=== PATIENT | female | born 1935 | race Caucasian/White ===

== ENCOUNTER → 2016-10-25 | Outpatient (CLI) | payer OTHER, MEDICARE ==
[~2016-10-25] MED LIST: ACET-1256 PO; ALEN70TA4 PO; ASPI-428 PO; CALC-437 PO; EFFSR150 PO; ERGO50002 PO; GABA-113 PO; LORA-741 PO; LPR25 PO; LSN40 PO; MAGN400T5 PO; MECL1TAB42 PO; MIRT30TA3 PO; MULT-1102 PO; MULTTAB61 PO; NRV5 PO; PANT1TAB48 PO; PRAV20TA PO; [UNRECOGNIZED DRUG - CODE] PO
[2016-10-25 08:37] LABS: MEAN CELL VOLUME 89.4 fL (80-100); MEAN CORPUSCULAR HEMOGLOBIN 28.7 pg (25-34); MEAN CORPUSCULAR HGB CONC 32.1 g/dl (32-36); MEAN PLATELET VOLUME 11.5 fL (7.4-10.4); PLATELET COUNT 306 K/uL (130-400); RED BLOOD COUNT 4.25 M/uL (4.2-5.4); WHITE BLOOD COUNT 5.38 K/uL (4.8-10.8)
[2016-10-25 08:46] LABS: ALT/SGPT 11 U/L (12-78); BLOOD UREA NITROGEN 13 mg/dl (7-18); BUN/CREATININE RATIO 12.9 (10-20); CALCIUM 9.2 mg/dl (8.5-10.1); CARBON DIOXIDE 26 mmol/L (21-32); CHLORIDE 98 mmol/L (98-107); GLUCOSE 101 mg/dl (70-99); SODIUM 137 mmol/L (136-145)
[2016-10-25 08:49] LABS: ALB/GLOB RATIO 0.8 (0.9-2); ALKALINE PHOSPHATASE 72 U/L (45-117); AST/SGOT 22 U/L (15-37); PHOSPHORUS 3.6 mg/dl (2.5-4.9)
== END | disposition home or self-care (01) ==
LOC: C.LABOUTLO 08:15
PROVIDERS: ATTEND Family Medicine
DX: I73.9 Peripheral vascular disease, unspecified (principal); I67.2 Cerebral atherosclerosis; N18.3 Chronic kidney disease, stage 3 (moderate)

== ENCOUNTER → 2016-12-16 | Outpatient (CLI) | payer OTHER, MEDICARE ==
[2016-12-16 12:07] LABS: HEMATOCRIT 36.8 % (37-47); MEAN CELL VOLUME 91.1 fL (80-100); MEAN CORPUSCULAR HGB CONC 31.8 g/dl (32-36); MEAN PLATELET VOLUME 11.4 fL (7.4-10.4); PLATELET COUNT 328 K/uL (130-400); RED BLOOD COUNT 4.04 M/uL (4.2-5.4); WHITE BLOOD COUNT 8.15 K/uL (4.8-10.8)
[2016-12-16 12:20] LABS: ALT/SGPT 9 U/L (12-78); BLOOD UREA NITROGEN 13 mg/dl (7-18); BUN/CREATININE RATIO 18.3 (10-20); CALCIUM 8.8 mg/dl (8.5-10.1); CARBON DIOXIDE 28 mmol/L (21-32); CHLORIDE 108 mmol/L (98-107); GLUCOSE 82 mg/dl (70-99); POTASSIUM 4.5 mmol/L (3.5-5.1); SODIUM 143 mmol/L (136-145)
[2016-12-16 12:23] LABS: ALB/GLOB RATIO 0.8 (0.9-2); ALKALINE PHOSPHATASE 76 U/L (45-117); AST/SGOT 21 U/L (15-37); PHOSPHORUS 3.5 mg/dl (2.5-4.9)
== END | disposition home or self-care (01) ==
LOC: C.LABWYN 12:24
PROVIDERS: ATTEND Family Medicine
DX: N18.3 Chronic kidney disease, stage 3 (moderate) (principal)

== ENCOUNTER → 2017-06-16 | Outpatient (CLI) | payer OTHER, MEDICARE ==
[2017-06-16 13:02] LABS: BLOOD UREA NITROGEN 15 mg/dl (7-18); BUN/CREATININE RATIO 17.5 (10-20); CALCIUM 8.8 mg/dl (8.5-10.1); CARBON DIOXIDE 32 mmol/L (21-32); CHLORIDE 106 mmol/L (98-107); CREATININE 0.83 mg/dl (0.60-1.20); GLUCOSE 84 mg/dl (70-99); POTASSIUM 4.3 mmol/L (3.5-5.1); SODIUM 142 mmol/L (136-145)
[2017-06-16 13:04] LABS: PHOSPHORUS 3.9 mg/dl (2.5-4.9)
== END | disposition home or self-care (01) ==
LOC: C.LABWYN 13:16
PROVIDERS: ATTEND Family Medicine
DX: Z23 Encounter for immunization (principal); I67.2 Cerebral atherosclerosis; Z86.73 Personal history of transient ischemic attack (TIA), and cerebral infarction without residual deficits; I73.9 Peripheral vascular disease, unspecified; N18.3 Chronic kidney disease, stage 3 (moderate)

== ENCOUNTER → 2017-10-24 | Outpatient (CLI) | payer OTHER, MEDICARE ==
[~2017-10-24] MED LIST changes: +PANT1TAB3 PO; -PANT1TAB48 PO
== END | disposition home or self-care (01) ==
LOC: C.PATHSPEC 17:07
PROVIDERS: ATTEND Surgery
DX: D48.5 Neoplasm of uncertain behavior of skin (principal)

== ENCOUNTER → 2017-12-22 | Outpatient (CLI) | payer OTHER, MEDICARE ==
[2017-12-22 13:11] LABS: HEMATOCRIT 37.2 % (37-47); HEMOGLOBIN 11.9 g/dL (12.0-16.0); MEAN CELL VOLUME 93.7 fL (80-100); PLATELET COUNT 282 K/uL (130-400); RED CELL DISTRIBUTION WIDTH CV 14.2 % (11.5-14.5); RED CELL DISTRIBUTION WIDTH SD 48.8 fL (36.4-46.3)
[2017-12-22 14:09] LABS: BLOOD UREA NITROGEN 15 mg/dl (7-18); CALCIUM 8.8 mg/dl (8.5-10.1); CARBON DIOXIDE 29 mmol/L (21-32); CREATININE 0.85 mg/dl (0.60-1.20); GLUCOSE 79 mg/dl (70-99); POTASSIUM 4.1 mmol/L (3.5-5.1); SODIUM 139 mmol/L (136-145)
== END | disposition home or self-care (01) ==
LOC: C.LABWYN 11:45
PROVIDERS: ATTEND Family Medicine
DX: N18.3 Chronic kidney disease, stage 3 (moderate) (principal)

== ENCOUNTER → 2018-01-03 | Outpatient (CLI) | payer OTHER, MEDICARE | END | disposition home or self-care (01) | LOC: C.LABWYN 18:02 | PROVIDERS: ATTEND Family Medicine | DX: N18.3 Chronic kidney disease, stage 3 (moderate) (principal) ==

== ENCOUNTER 2018-05-01 09:30 | Inpatient (IN) | payer OTHER, MEDICARE ==
[~2018-05-01] VITALS: Ht 162.6 cm; Wt 62.8 kg
[~2018-05-01 09:30] MED LIST changes: -ERGO50002 PO; +LISI40TA3 PO; -LSN40 PO; +[UNRECOGNIZED DRUG - CODE] PO
[2018-05-01] MEDS ORDERED: IMD/2 PO (09:52)
[2018-05-01] MEDS ORDERED: PROC1SUP PR (09:52)
[2018-05-01] MEDS ORDERED: VENL150C56 PO (09:52)
[2018-05-01] MEDS ORDERED: ROSU20TA PO (09:52)
[2018-05-01] MEDS ORDERED: ACET-1693 PO (09:52)
[2018-05-01] MEDS ORDERED: CALC500C2 PO (09:52)
[2018-05-01] MEDS ORDERED: ONDA4TAB46 PO (09:52)
[2018-05-01] MEDS ORDERED: LORA-741 PO (09:52)
[2018-05-01] MEDS ORDERED: TRN400 PO (09:52)
[2018-05-01] MEDS ORDERED: PANT40TA PO (09:52)
[2018-05-01] MEDS ORDERED: CARB1SOL8 OT (09:52)
[2018-05-01] MEDS ORDERED: ERGO500037 PO (09:52)
[2018-05-01] MEDS ORDERED: PRAV80TA2 PO (09:52)
[2018-05-01] MEDS ORDERED: GABA-113 PO (09:52)
[2018-05-01] MEDS ORDERED: ASPI81TA28 PO (09:52)
[2018-05-01] MEDS ORDERED: METO25TA56 PO (09:52)
[2018-05-01] MEDS ORDERED: CALC-437 PO (09:52)
[2018-05-01] MEDS ORDERED: AMLO5TAB3 PO (09:52)
[2018-05-01] MEDS ORDERED: MULTTAB63 PO (09:52)
[2018-05-01] MEDS ORDERED: LISI40TA PO (09:52)
[2018-05-01 10:01] LABS: HEMATOCRIT 35.8 % (37-47); HEMOGLOBIN 11.7 g/dL (12.0-16.0); MEAN CELL VOLUME 89.7 fL (80-100); MEAN CORPUSCULAR HEMOGLOBIN 29.3 pg (25-34); MEAN CORPUSCULAR HGB CONC 32.7 g/dl (32-36); MEAN PLATELET VOLUME 10.9 fL (7.4-10.4); PLATELET COUNT 280 K/uL (130-400); RED CELL DISTRIBUTION WIDTH CV 14.2 % (11.5-14.5); RED CELL DISTRIBUTION WIDTH SD 46.7 fL (36.4-46.3); WHITE BLOOD COUNT 16.06 K/uL (4.8-10.8)
[2018-05-01 10:19] LABS: BASO % 0.1 %; BASO ABS # 0.02 K/uL (0-0.2); EOS % 0.1 %; EOS ABS # 0.01 K/uL (0-0.5); LYMPH % 17.7 %; LYMPH ABS # 2.85 K/uL (1.2-3.4); MONO % 13.2 %; MONO ABS # 2.12 K/uL (0.11-0.59); NEUT % 68.3 %; NEUT ABS # 10.96 K/uL (1.4-6.5)
[2018-05-01 10:25] LABS: ALBUMIN 2.8 gm/dl (3.4-5.0); CALCIUM 7.8 mg/dl (8.5-10.1); CREATININE 2.46 mg/dl (0.60-1.20); POTASSIUM 3.1 mmol/L (3.5-5.1); TOTAL PROTEIN 6.7 gm/dl (6.4-8.2)
[2018-05-01] MEDS ORDERED: SODIUM CHLORIDE 0.9% 1000ML 1,000 ML IV STA ×2 (10:29→10:44)
--- NOTE | 2018-05-01 10:38 | DIAGNOSTIC IMAGING REPORT ---
SINGLE VIEW CHEST CLINICAL HISTORY: Fever. Lethargy. FINDINGS: An AP, portable, upright chest radiograph is compared to study dated 03/18/2015 and correlated with chest CT dated 11/26/2013. The examination is degraded by portable technique and patient rotation. The heart is mildly enlarged and there is atherosclerotic calcification of the thoracic aorta. The pulmonary vasculature is noncongested. Emphysema and chronic interstitial thickening are similar to previous. There is no airspace consolidation or pleural effusion. Scarring is noted at the right lung base. No pneumothorax is seen. The skeletal structures are osteopenic. There are numerous healed right-sided rib fractures. Degenerative change is noted in the thoracic spine. IMPRESSION: Cardiomegaly, mild emphysema, and chronic parenchymal changes as above. No acute cardiopulmonary abnormality is seen. Electronically signed by: Natan Meredith M.D. 05/01/2018 10:37 AM Dictated Date/Time: 05/01/2018 10:35 AM
--- NOTE | 2018-05-01 13:06 | DIAGNOSTIC IMAGING REPORT ---
ABD/PELVIS NO IV OR ORAL CONT CT DOSE: 636.84 mGycm HISTORY: Bowel change. Pain. Nausea. abd pain, diarrhea TECHNIQUE: Multiaxial CT images of the abdomen and pelvis were performed without contrast. A dose lowering technique was utilized adhering to the principles of ALARA. COMPARISON STUDY: 06/03/2014 FINDINGS: Lung bases are considered clear. Minimal dependent basilar atelectasis. Liver spleen and pancreas are unremarkable. Hyperplastic change of the adrenals are similar. Right kidney shows several vascular calcifications. Left kidney shows an extrarenal pelvis. There is no evidence for hydronephrosis. There is a 3 mm posterior hyperdense cyst. Bowel pattern shows fluid-filled loops of colon. There appears to be a component of mild generalized wall thickening and/or edematous change. This is associated with lumen fluid. Bladder is mildly distended. There is a fibroid-type uterus. IMPRESSION: 1. Findings consistent with generalized wall edema and mild distention of the colon consistent with a nonspecific colitis/enteritis. 2. No evidence for abscess collection or obstructive change. 3. Left kidney extrarenal pelvis unchanged from the prior study. The above report was generated using voice recognition software. It may contain grammatical, syntax or spelling errors. Electronically signed by: Tavon Mcintosh M.D. 05/01/2018 1:05 PM Dictated Date/Time: 05/01/2018 12:53 PM
[2018-05-01] MEDS ORDERED: FIDAXOMICIN TAB 200 MG TAB PO STA (13:43)
[2018-05-01] MEDS ORDERED: ONDANSETRON INJ 2 MG/ML 2 ML VIAL IV PRN (14:15)
[2018-05-01] MEDS ORDERED: LORAZEPAM 1 MG TAB PO PRN (15:00)
--- NOTE | 2018-05-01 15:32 | History and Physical ---
History & Physical Date & Time of Service: May 01, 2018 ~ 13:45 Chief Complaint: Diarrhea, bright red bleeding per rectum Primary Care Physician: Jo Hayes M.D. History of Present Illness Source: patient, family 82-year-old female who presents to the ED with diarrhea and bright red bleeding per rectum. Patient currently resides at [facility]. Patient is very hard of hearing and history is somewhat limited from her. I also spoke to the staff at [facility]. She reports she has been having diarrhea for the past 1 week. The staff at [facility] report they noted bright red blood with mucousy diarrhea this morning. Patient reports generalized abdominal pain and cramping. The staff at [facility] report that the patient had some vomiting a few days ago. They deny coffee-ground emesis hematemesis. No fevers or chills. She denies lightheadedness, dizziness, diaphoresis, syncopal events. No chest pain or shortness of breath. She denies any urinary symptoms. In the ED, patient has a positive for C. difficile. She is on have an KEON with creatinine of 2.4. WBC 16 K. She is hemodynamically stable. She was given 2 L IVF and 1 dose of oral Dificid. Of note, patient received clindamycin 04/01 through 04/09 for a dental infection. Past Medical/Surgical History Medical Problems: (1) Ankle fracture Status: Chronic (2) Anxiety Status: Chronic (3) C. difficile colitis Status: Chronic (4) CKD stage 3 due to type 1 diabetes mellitus Status: Chronic (5) CVA (cerebral vascular accident) Status: Chronic (6) Depression Status: Chronic (7) Lower extremity angioplasty Status: Chronic (8) PVD (peripheral vascular disease) Status: Chronic (9) TIA (transient ischemic attack) Status: Chronic Surgical Problems: (1) History of left-sided carotid endarterectomy Status: Chronic (2) History of right-sided carotid endarterectomy Status: Chronic (3) History of tonsillectomy and adenoidectomy Status: Chronic (4) Hx of cholecystectomy Status: Chronic Family History Noncontributory secondary to patient's advanced age Social History Smoking Status: Current Every Day Smoker Alcohol Use: 4 ounces/day Housing status: other ([facility]) Immunizations History of Influenza Vaccine: Yes Influenza Vaccine Date: Jun 14, 2017 History of Tetanus Vaccine?: Yes Tetanus Immunization Date: Apr 06, 2012 History of Pneumococcal: Yes Pneumococcal Date: Dec 25, 2015 Allergies Coded Allergies: Amoxicillin (Verified Allergy, Unknown, BETA-LACTAMS, 05/01/18) Clavulanic Acid (Verified Allergy, Unknown, BETA-LACTAMS, 05/01/18) Codeine (Verified Allergy, Unknown, 05/01/18) Hydrocodone (Verified Allergy, Unknown, 05/01/18) Morphine (Verified Allergy, Unknown, 05/01/18) Home Medications Scheduled Amlodipine (Norvasc), 5 MG PO DAILY Aspirin (Aspirin Ec), 81 MG PO DAILY Calcium Carbonate (Antacid) (Calcium Carbonate), 1,296 MG PO DAILY Carbamide Peroxide (Otic) (Debrox), 5 DROPS OT BID Ergocalciferol (Vitamin D 90939 Unit), 50,000 UNIT PO MONTHLY Gabapentin (Neurontin), 300 MG PO DAILY Lisinopril (Zestril), 40 MG PO DAILY Metoprolol Tartrate (Lopressor) (Lopressor), 25 MG PO BID Multiple Vitamins W/ Minerals (Therems M), 1 TAB PO QAM Pantoprazole (Protonix), 40 MG PO DAILY Pentoxifylline (Pentoxifylline ER), 400 MG PO TID Pravastatin Sodium (Pravastatin Sodium), 80 MG PO QPM Rosuvastatin Calcium (Crestor), 20 MG PO DAILY Venlafaxine Hcl (Effexor Extended Rel), 150 MG PO DAILY Scheduled PRN Acetaminophen Tab (Tylenol), 650 MG PO Q3-4HRS PRN for Pain or Fever Calcium Carbonate (Antacid) (Antacid), 500 MG PO TID PRN for HEARTBURN/ INDIGESTION Loperamide Hcl (Imodium), 4 MG PO UD PRN for Diarrhea Loperamide Hcl (Imodium), 2 MG PO UD PRN for Diarrhea Lorazepam (Ativan), 0.5 MG PO Q6H PRN for Anxiety Ondansetron Hcl (Zofran), 4 MG PO Q6 PRN for Nausea Prochlorperazine (Compro), 25 MG NE Q12 PRN for Nausea Review of Systems ROS per HPI, all other systems reviewed and negative Physical Exam Vital Signs Date Time Temp Pulse Resp B/P (MAP) Pulse Ox O2 Delivery O2 Flow Rate FiO2 8/6/18 13:12 99 22 145/54 95 Nasal Cannula 2.0 05/01/18 12:01 158/49 05/01/18 12:00 89 20 05/01/18 11:30 97 25 98 05/01/18 11:11 130/56 05/01/18 11:09 102 18 130/56 98 Nasal Cannula 2.0 05/01/18 11:00 100 26 05/01/18 10:31 141/73 05/01/18 10:30 102 20 05/01/18 10:01 151/53 05/01/18 10:00 93 23 95 05/01/18 09:54 92 05/01/18 09:52 93 Nasal Cannula 4.0 05/01/18 09:41 37.9 100 18 124/63 88 Room Air 05/01/18 09:37 124/63 General Appearance: WD/WN, no apparent distress Head: normocephalic, atraumatic Eyes: normal inspection, EOMI, sclerae normal ENT: + pertinent finding (Very HO-CHUNK, mucous membranes dry) Neck: supple, no JVD, trachea midline Respiratory/Chest: lungs clear, normal breath sounds, no respiratory distress Cardiovascular: regular rate, rhythm, no edema, normal peripheral pulses Abdomen/GI: normal bowel sounds, soft, no organomegaly, + tenderness ( Generalized) Extremities/Musculoskelatal: normal inspection, no calf tenderness, normal capillary refill Neurologic/Psych: no motor/sensory deficits, alert, normal mood/affect, oriented x 3 Skin: normal color, warm/dry Diagnostics Laboratory Results Results Past 24 Hours Test 05/01/18 09:45 05/01/18 10:54 Range/Units White Blood Count 16.06 4.8-10.8 K/uL Red Blood Count 3.99 4.2-5.4 M/uL Hemoglobin 11.7 12.0-16.0 g/dL Hematocrit 35.8 37-47 % Mean Corpuscular Volume 89.7 80-100 fL Mean Corpuscular Hemoglobin 29.3 25-34 pg Mean Corpuscular Hemoglobin Concent 32.7 32-36 g/dl Platelet Count 280 130-400 K/uL Mean Platelet Volume 10.9 7.4-10.4 fL Neutrophils (%) (Auto) 68.3 % Lymphocytes (%) (Auto) 17.7 % Monocytes (%) (Auto) 13.2 % Eosinophils (%) (Auto) 0.1 % Basophils (%) (Auto) 0.1 % Neutrophils # (Auto) 10.96 1.4-6.5 K/uL Lymphocytes # (Auto) 2.85 1.2-3.4 K/uL Monocytes # (Auto) 2.12 0.11-0.59 K/uL Eosinophils # (Auto) 0.01 0-0.5 K/uL Basophils # (Auto) 0.02 0-0.2 K/uL RDW Standard Deviation 46.7 36.4-46.3 fL RDW Coefficient of Variation 14.2 11.5-14.5 % Immature Granulocyte % (Auto) 0.6 % Immature Granulocyte # (Auto) 0.10 0.00-0.02 K/uL Toxic Vacuolation 1+ Sodium Level 134 136-145 mmol/L Potassium Level 3.1 3.5-5.1 mmol/L Chloride Level 100 98-107 mmol/L Carbon Dioxide Level 26 21-32 mmol/L Anion Gap 8.0 3-11 mmol/L Blood Urea Nitrogen 58 7-18 mg/dl Creatinine 2.46 0.60-1.20 mg/dl Est Creatinine Clear Calc Drug Dose 15.0 ml/min Estimated GFR () 20.3 Estimated GFR (Non- 17.5 BUN/Creatinine Ratio 23.4 10-20 Random Glucose 98 70-99 mg/dl Calcium Level 7.8 8.5-10.1 mg/dl Total Bilirubin 0.3 0.2-1 mg/dl Aspartate Amino Transf (AST/SGOT) 15 15-37 U/L Alanine Aminotransferase (ALT/SGPT) 10 12-78 U/L Alkaline Phosphatase 75 45-117 U/L Total Protein 6.7 6.4-8.2 gm/dl Albumin 2.8 3.4-5.0 gm/dl Globulin 3.9 2.5-4.0 gm/dl Albumin/Globulin Ratio 0.7 0.9-2 Bedside Lactic Acid Venous 0.90 0.90-1.70 mmol/L Microbiology Results 05/01/18 Blood Culture, Received Pending 05/01/18 Blood Culture, Received Pending 05/01/18 C.difficile Toxin B Gene (PCR) - Final, Complete Positive for C. difficile toxin B gene 05/01/18 Shiga Toxin Test, Received Pending 05/01/18 Stool Culture, Received Pending Diagnostic Radiology CXR IMPRESSION: Cardiomegaly, mild emphysema, and chronic parenchymal changes as above. No acute cardiopulmonary abnormality is seen. CT ABD/PELVIS IMPRESSION: 1. Findings consistent with generalized wall edema and mild distention of the colon consistent with a nonspecific colitis/enteritis. 2. No evidence for abscess collection or obstructive change. 3. Left kidney extrarenal pelvis unchanged from the prior study. Impression Assessment and Plan KEON ON CKD STAGE III -Admit to [facility] -Patient presenting from [facility] with reports of diarrhea 1 week with bright red bleeding per rectum that began this morning -Presented with creatinine of 2.4 (baseline ~ 0.8-1.0) -Likely prerenal secondary to diarrhea in combination with TOREY inhibitor use -IVF, avoid nephrotoxic agents when able C. DIFFICILE COLITIS -WBC 16 K, lactic acid normal, BP stable -Patient received a course of clindamycin about 1 month ago for dental infection -Tested positive for C. difficile in the ER -Given renal dysfunction, patient started on Dificid -Continue supportive care with IVF, anti-emetics -Full liquid diet, advance as tolerated BRIGHT RED BLEEDING PER RECTUM -Likely due to C. difficile colitis -Hemoglobin stable at 11.7, will recheck this evening HYPERTENSION -BP stable, continue metoprolol and amlodipine -Holding lisinopril secondary to AK I PVD -Continue aspirin, statin, Trental -Noted on patient's medication list from [facility] that rosuvastatin and pravastatin were both listed -Inquired patient's pharmacy, rosuvastatin was most recently prescribed so we will hold pravastatin for now -Notified [facility] who will confirm with patient's PCP HISTORY OF CVA -Continue aspirin and statin ALCOHOL USE -4 ounces of liquor per day -Monitor for signs of withdrawal DVT PROPHYLAXIS -SCDs due to reports of bright red bleeding per rectum CODE STATUS -Patient is a full code as per documentation sent from [facility]. DISPOSITION -In my clinical judgment this beneficiary meets acute admission criteria, established by [facility], that includes being hospitalized through two midnights. ATTENDING ADDENDUM care coordinated with MIGDALIA Bee please refer to her notes for full details, I agree with her notes patient seen and examined, records reviewed by myself as well on exam, patient seen resting in bed, comfortable states she feels somewhat better compared to admission no abdominal pain, nausea/vomiting still has diarrhea but less no other symptoms VS noted and reviewed oriented x 2, not in distress, speaks in sentences with no effort nor accessory muscle use normal rate, regular rhythm, no murmurs clear breath sounds bilaterally non distended, soft, nontender no bipedal edema, erythema, warmth no neuro deficits WBC 16 Crea 2.4 ASSESSMENT/PLAN> C DIFF COLITIS Fidaxomicin ordered IV fluids ACUTE RENAL FAILURE IV fluids ordered likely pre renal other diagnoses and plan of care as per MIGDALIA Bee's notes Red Jensen MD Resuscitation Status VTE Prophylaxis Will order VTE Prophylaxis: Yes
[2018-05-01 16:00] VITALS: BP 124/63; PULSE 82; TEMP 37.3; O2SAT 97
[2018-05-01] MEDS ORDERED: POTASSIUM CHLORIDE 20 MEQ TABCR PO ONE (16:30)
[2018-05-01] MEDS: SODIUM CHLORIDE 0.9% 1000ML 1,000 ML IV SCH (16:44)
[2018-05-01 16:58] VITALS: O2SAT 92; BMI 23.8
[2018-05-01] MEDS: MAGNESIUM SULFATE 1GM / D5W 100 ML IV SCH ×2 (17:41→17:43)
[2018-05-01 17:47] VITALS: O2SAT 93
[2018-05-01 21:28] LABS: HEMATOCRIT 38.7 % (37-47); HEMOGLOBIN 12.6 g/dL (12.0-16.0)
[2018-05-01] MEDS: FIDAXOMICIN TAB 200 MG TAB PO SCH (21:31)
[2018-05-01] MEDS: PENTOXIFYLLINE 400MG EXT REL TAB PO SCH (21:31)
[2018-05-01] MEDS: METOPROLOL TARTRATE 25 MG TAB PO SCH (21:31)
[2018-05-01] MEDS: ACETAMINOPHEN 325 MG TAB PO PRN (21:48)
[2018-05-02] MEDS: SODIUM CHLORIDE 0.9% 1000ML 1,000 ML IV SCH ×2 (01:27→07:58)
[2018-05-02 07:33] VITALS: BP 147/65; PULSE 96; TEMP 36.5; O2SAT 94
[2018-05-02] MEDS: PENTOXIFYLLINE 400MG EXT REL TAB PO SCH (07:51)
[2018-05-02] MEDS: PANTOprazole SOD 40 MG TAB PO SCH (07:51)
[2018-05-02] MEDS: METOPROLOL TARTRATE 25 MG TAB PO SCH ×2 (07:51→19:58)
[2018-05-02] MEDS: CALCIUM CARBONATE 1250MG TAB PO SCH (07:52)
[2018-05-02] MEDS: AMLODIPINE BESYLATE 5 MG TAB PO SCH (07:52)
[2018-05-02] MEDS: CEROVITE ADV FORMULA TAB PO SCH (07:52)
[2018-05-02] MEDS: VENLAFAXINE HCL XR 150 MG CAPXR PO SCH (07:53)
[2018-05-02 07:55] LABS: CALCIUM 7.5 mg/dl (8.5-10.1); CREATININE 1.31 mg/dl (0.60-1.20); POTASSIUM 3.3 mmol/L (3.5-5.1)
[2018-05-02] MEDS: FIDAXOMICIN TAB 200 MG TAB PO SCH ×2 (07:58→19:58)
[2018-05-02 08:00] VITALS: O2SAT 94
[2018-05-02] MEDS ORDERED: ROSUVASTATIN CALCIUM 20 MG TAB PO SCH (08:00)
[2018-05-02] MEDS ORDERED: GABAPENTIN 300 MG CAP PO SCH (08:00)
[2018-05-02] MEDS ORDERED: ASPIRIN 81 MG ECTAB PO SCH (08:00)
[2018-05-02 08:28] LABS: HEMOGLOBIN 11.7 g/dL (12.0-16.0); MEAN CELL VOLUME 87.6 fL (80-100); MEAN CORPUSCULAR HEMOGLOBIN 30.2 pg (25-34); MEAN CORPUSCULAR HGB CONC 34.4 g/dl (32-36); MEAN PLATELET VOLUME 11.3 fL (7.4-10.4); PLATELET COUNT 248 K/uL (130-400); RED CELL DISTRIBUTION WIDTH CV 14.3 % (11.5-14.5); RED CELL DISTRIBUTION WIDTH SD 45.5 fL (36.4-46.3); WHITE BLOOD COUNT 26.82 K/uL (4.8-10.8)
[2018-05-02] MEDS ORDERED: LORAZEPAM 1 MG TAB PO PRN (09:15)
[2018-05-02] MEDS ORDERED: GABAPENTIN 600 MG TAB PO SCH (09:15)
--- NOTE | 2018-05-02 09:22 | Progress Note ---
Medicine Progress Note Date & Time of Visit: May 02, 2018 at 09:12. Subjective seen resting in bed, sleeping but easily awakened states she feels improved today compared to yesterday had 1 loose BM this morning, last one before that was before midnight no abdominal pain, nausea, chills denies tremors, anxiety, hallucinations no other symptoms Objective Last 8 Hrs Date Time Temp Pulse Resp B/P (MAP) Pulse Ox O2 Delivery O2 Flow Rate FiO2 05/02/18 07:33 36.5 96 18 147/65 (92) 94 Room Air Physical Exam: General- oriented x 2, not in distress, speaking in sentences with no effort Head- atraumatic Eyes-anicteric Neck- supple, no JVD Lungs- clear to auscultation bilaterally Heart- regular rhythm; no murmur, normal rate Abdomen- normal bowel sounds, soft, nontender, non distended Extremities- no pretibial edema, no calf tenderness; peripheral pulses intact Neuro- alert, oriented x 2 decreased hearing no other focal neuro deficits Skin- warm & dry Laboratory Results: Last 24 Hours Test 05/01/18 09:45 05/01/18 10:54 05/01/18 21:11 05/02/18 07:26 White Blood Count 16.06 K/uL 26.82 K/uL Red Blood Count 3.99 M/uL 3.88 M/uL Hemoglobin 11.7 g/dL 12.6 g/dL 11.7 g/dL Hematocrit 35.8 % 38.7 % 34.0 % Mean Corpuscular Volume 89.7 fL 87.6 fL Mean Corpuscular Hemoglobin 29.3 pg 30.2 pg Mean Corpuscular Hemoglobin Concent 32.7 g/dl 34.4 g/dl Platelet Count 280 K/uL 248 K/uL Mean Platelet Volume 10.9 fL 11.3 fL Neutrophils (%) (Auto) 68.3 % Lymphocytes (%) (Auto) 17.7 % Monocytes (%) (Auto) 13.2 % Eosinophils (%) (Auto) 0.1 % Basophils (%) (Auto) 0.1 % Neutrophils # (Auto) 10.96 K/uL Lymphocytes # (Auto) 2.85 K/uL Monocytes # (Auto) 2.12 K/uL Eosinophils # (Auto) 0.01 K/uL Basophils # (Auto) 0.02 K/uL RDW Standard Deviation 46.7 fL 45.5 fL RDW Coefficient of Variation 14.2 % 14.3 % Immature Granulocyte % (Auto) 0.6 % Immature Granulocyte # (Auto) 0.10 K/uL Toxic Vacuolation 1+ Sodium Level 134 mmol/L 138 mmol/L Potassium Level 3.1 mmol/L 3.3 mmol/L Chloride Level 100 mmol/L 110 mmol/L Carbon Dioxide Level 26 mmol/L 20 mmol/L Anion Gap 8.0 mmol/L 8.0 mmol/L Blood Urea Nitrogen 58 mg/dl 39 mg/dl Creatinine 2.46 mg/dl 1.31 mg/dl Est Creatinine Clear Calc Drug Dose 15.0 ml/min 28.1 ml/min Estimated GFR () 20.3 43.5 Estimated GFR (Non- 17.5 37.6 BUN/Creatinine Ratio 23.4 30.1 Random Glucose 98 mg/dl 94 mg/dl Calcium Level 7.8 mg/dl 7.5 mg/dl Magnesium Level 1.5 mg/dl 2.1 mg/dl Total Bilirubin 0.3 mg/dl Aspartate Amino Transf (AST/SGOT) 15 U/L Alanine Aminotransferase (ALT/SGPT) 10 U/L Alkaline Phosphatase 75 U/L Total Protein 6.7 gm/dl Albumin 2.8 gm/dl Globulin 3.9 gm/dl Albumin/Globulin Ratio 0.7 Bedside Lactic Acid Venous 0.90 mmol/L Platelet Estimate NORMAL Date/Time Source Procedure Growth Status 05/01/18 10:44 Blood Blood Culture Pending Received 05/01/18 09:45 Blood Blood Culture Pending Received 05/01/18 12:35 Stool C.difficile Toxin B Gene (PCR) - Final Positive for C. difficile toxin B gene Complete 05/01/18 12:35 Stool Shiga Toxin Test Pending Received 05/01/18 12:35 Stool Stool Culture Pending Received Assessment & Plan 82 y/o female with history of HTN, CKD 3, CVA, PVD presenting with diarrhea. SEVERE C. DIFFICILE COLITIS -WBC 16 K, lactic acid normal, BP stable -Patient received a course of clindamycin about 1 month ago for dental infection -Tested positive for C. difficile in the ER -Given renal dysfunction, patient started on Dificid - diarrhea improving continue Dificid BID Day 11/05 IV NSS KEON ON CKD STAGE III -Patient presenting from [facility] with reports of diarrhea 1 week with bright red bleeding per rectum that began this morning -Presented with creatinine of 2.4 (baseline ~ 0.8-1.0) -Likely prerenal secondary to diarrhea in combination with TOREY inhibitor use - improving continue NSS hold Lisinopril BRIGHT RED BLEEDING PER RECTUM -Likely due to C. difficile colitis - Hg 11--> 12--> 11 monitor - hold ASA and Trental for now HYPERTENSION -BP stable, continue metoprolol and amlodipine -Holding lisinopril secondary to AK I PVD - hold ASA, Trental in light of hematochezia hold Statin in light of diarrhea HISTORY OF CVA - hold meds as noted above ALCOHOL USE -4 ounces of liquor per day - placed on Alcohol Withdrawal Protocol, Gabapentin taper- renally dosed DVT PROPHYLAXIS -SCDs due to reports of bright red bleeding per rectum encouraged to ambulated CODE STATUS -Patient is a full code as per documentation sent from [facility]. DISPOSITION anticipate return to [facility] when medically stable Current Inpatient Medications: Current Inpatient Medications Medications (Trade) Dose Ordered Sig/Monique Route Start Time Stop Time Status Last Admin Dose Admin Acetaminophen (Tylenol Tab) 650 mg Q4H PRN PO 05/01/18 14:15 05/31/18 14:14 05/01/18 21:48 650 MG Ondansetron HCl (Zofran Inj) 4 mg Q6H PRN IV 05/01/18 14:15 05/31/18 14:14 05/02/18 08:45 4 MG Sodium Chloride 1,000 ml @ 125 mls/hr Q8H IV 05/01/18 16:15 05/31/18 16:14 05/02/18 07:58 125 MLS/HR Fidaxomicin (Dificid Tab) 200 mg BID PO 05/01/18 20:00 05/11/18 20:59 05/02/18 07:58 200 MG Amlodipine Besylate (Norvasc Tab) 5 mg DAILY PO 05/02/18 08:00 06/01/18 08:59 05/02/18 07:52 5 MG Gabapentin (Neurontin Cap) 300 mg DAILY PO 05/02/18 08:00 06/01/18 08:59 05/02/18 07:52 300 MG Metoprolol Tartrate (Lopressor Tab) 25 mg BID PO 05/01/18 20:00 05/31/18 20:59 05/02/18 07:51 25 MG Multivitamins/ Minerals (Multivitamin W/ Minerals Tab) 1 tab QAM PO 05/02/18 08:00 06/01/18 08:59 05/02/18 07:52 1 TAB Pantoprazole Sodium (Protonix Tab) 40 mg DAILY PO 05/02/18 08:00 06/01/18 08:59 05/02/18 07:51 40 MG Venlafaxine HCl (effeXOR EXTENDED REL CAP) 150 mg DAILY PO 05/02/18 08:00 06/01/18 08:59 05/02/18 07:53 150 MG Calcium Carbonate (oS-Philippe 500 TAB) 1,250 mg DAILY PO 05/02/18 08:00 06/01/18 08:59 05/02/18 07:52 1,250 MG
--- NOTE | 2018-05-02 09:24 | Clinical Documentation Query ---
MOHAN Oliver : CLINICAL DOCUMENTATION QUERY Patient is an 82 year old female admitted for evaluation and treatment of KEON on CKD III in the setting of C.Difficile colitis. This is in the setting of recent Clindamycin therapy as an outpatient for a dental infection. As appropriate, consider explicit/causal linkage of C.Diff and Clindamycin therapy as suggested below as complications of care cannot be assumed by the professional operations manager assistant. Thank you. In your clinical opinion is this patient being managed for: ( X ) C.Difficile colitis (possibly/likely) due to Clindamycin therapy for prior dental infection ( ) Not Agree ( ) Other explanation of clinical findings (No explanation is considered a No Response) ( ) Unable to determine ( ) Need to Discuss (Phone CDS or qliq) (No discussion is considered a No Response) The medical record reflects the following clinical findings, treatment, and risk factors. Clinical Indicators: As above Treatment: Dificid PO BID, handwashing precautions, IVF Risk Factors: Clindamycin therapy Please clarify and document your clinical opinion in the progress notes and discharge summary. Terms such as "probable", "suspected", "likely", "questionable", "possible", or "still to be ruled out" are acceptable. IF IN AGREEMENT, YOU MUST DOCUMENT ABOVE DIAGNOSTIC STATEMENT IN DAILY PROGRESS NOTES AND DISCHARGE SUMMARY. This document is not part of the patient's record. Thank You, Jc Holland RN [phone]
[2018-05-02] MEDS: NSS + 20MEQ KCL 1000ML 1,000 ML IV SCH ×2 (10:12→22:32)
[2018-05-02] MEDS: THIAMINE HCL 100 MG TAB PO SCH (10:54)
[2018-05-02] MEDS ORDERED: GABAPENTIN 300 MG PO SCH (11:00)
[2018-05-02] MEDS ORDERED: [UNRECOGNIZED DRUG - OTHER] PO SCH (11:00)
[2018-05-02 15:16] VITALS: BP 120/64; PULSE 94; TEMP 36.5; O2SAT 95
[2018-05-02 19:57] VITALS: BP 115/60; PULSE 93
[2018-05-02] MEDS: LORAZEPAM 0.5 MG TAB PO PRN (20:06)
[2018-05-02] MEDS: ACETAMINOPHEN 325 MG TAB PO PRN (20:07)
[2018-05-02] MEDS: GABAPENTIN 100MG Q6H DOSE PO SCH (22:32)
[2018-05-02 23:53] VITALS: BP 90/49; PULSE 72; TEMP 36.5; O2SAT 90
[2018-05-03] MEDS: GABAPENTIN 100MG Q6H DOSE PO SCH (04:53)
[2018-05-03 06:29] LABS: BASO % 0.2 %; BASO ABS # 0.03 K/uL (0-0.2); HEMATOCRIT 35.8 % (37-47); HEMOGLOBIN 11.5 g/dL (12.0-16.0); IG# 0.17 K/uL (0.00-0.02); LYMPH % 12.8 %; LYMPH ABS # 2.23 K/uL (1.2-3.4); MEAN CELL VOLUME 90.9 fL (80-100); MEAN CORPUSCULAR HEMOGLOBIN 29.2 pg (25-34); MEAN CORPUSCULAR HGB CONC 32.1 g/dl (32-36); MEAN PLATELET VOLUME 10.2 fL (7.4-10.4); MONO % 14.8 %; MONO ABS # 2.58 K/uL (0.11-0.59); NEUT % 71.2 %; NEUT ABS # 12.42 K/uL (1.4-6.5); PLATELET COUNT 267 K/uL (130-400); RED CELL DISTRIBUTION WIDTH CV 14.6 % (11.5-14.5); RED CELL DISTRIBUTION WIDTH SD 48.6 fL (36.4-46.3); WHITE BLOOD COUNT 17.43 K/uL (4.8-10.8)
[2018-05-03 06:45] LABS: CALCIUM 7.5 mg/dl (8.5-10.1); CREATININE 1.01 mg/dl (0.60-1.20); POTASSIUM 3.3 mmol/L (3.5-5.1)
[2018-05-03 07:09] VITALS: BP 91/46; PULSE 79; TEMP 36.7; O2SAT 95
[2018-05-03] MEDS: METOPROLOL TARTRATE 25 MG TAB PO SCH ×2 (07:57→20:57)
[2018-05-03] MEDS: AMLODIPINE BESYLATE 5 MG TAB PO SCH (07:58)
[2018-05-03] MEDS: CEROVITE ADV FORMULA TAB PO SCH (07:58)
[2018-05-03] MEDS: CALCIUM CARBONATE 1250MG TAB PO SCH (07:58)
[2018-05-03] MEDS: PANTOprazole SOD 40 MG TAB PO SCH (07:58)
[2018-05-03] MEDS: VENLAFAXINE HCL XR 150 MG CAPXR PO SCH (07:58)
[2018-05-03 08:00] VITALS: O2SAT 95
[2018-05-03] MEDS: FIDAXOMICIN TAB 200 MG TAB PO SCH ×2 (08:03→20:56)
[2018-05-03] MEDS: THIAMINE HCL 100 MG TAB PO SCH (09:27)
[2018-05-03] MEDS: NSS + 20MEQ KCL 1000ML 1,000 ML IV SCH (11:27)
[2018-05-03 15:20] VITALS: BP 123/70; PULSE 89; TEMP 36.4; O2SAT 96
[2018-05-03] MEDS ORDERED: POTASSIUM CHLORIDE 20 MEQ TABCR PO ONE (15:37)
--- NOTE | 2018-05-03 15:57 | Progress Note ---
Medicine Progress Note Date & Time of Visit: May 03, 2018 at 15:50. Subjective seen resting in bed, comfortable had 3 moderate Loose BMs, and 3 small LBMs no nausea, chills, abdominal pain no tremors, anxiety, hallucinations no other symptom Objective Last 8 Hrs Date Time Temp Pulse Resp B/P (MAP) Pulse Ox O2 Delivery O2 Flow Rate FiO2 05/03/18 15:20 36.4 89 16 123/70 (87) 96 05/03/18 08:00 95 Room Air Physical Exam: General- oriented x 2, not in distress, speaking in sentences with no effort Head- atraumatic Eyes-anicteric Neck- no JVD Lungs- clear BS bilaterally no rales/wheezes Heart- regular rhythm; no murmur, normal rate Abdomen- normal bowel sounds, soft, nontender Extremities- no pretibial edema, no calf tenderness Neuro- alert, oriented x 2 decreased hearing no other focal neuro deficits Skin- warm & dry Laboratory Results: Last 24 Hours Test 05/03/18 06:08 White Blood Count 17.43 K/uL Red Blood Count 3.94 M/uL Hemoglobin 11.5 g/dL Hematocrit 35.8 % Mean Corpuscular Volume 90.9 fL Mean Corpuscular Hemoglobin 29.2 pg Mean Corpuscular Hemoglobin Concent 32.1 g/dl Platelet Count 267 K/uL Mean Platelet Volume 10.2 fL Neutrophils (%) (Auto) 71.2 % Lymphocytes (%) (Auto) 12.8 % Monocytes (%) (Auto) 14.8 % Eosinophils (%) (Auto) 0.0 % Basophils (%) (Auto) 0.2 % Neutrophils # (Auto) 12.42 K/uL Lymphocytes # (Auto) 2.23 K/uL Monocytes # (Auto) 2.58 K/uL Eosinophils # (Auto) 0.00 K/uL Basophils # (Auto) 0.03 K/uL RDW Standard Deviation 48.6 fL RDW Coefficient of Variation 14.6 % Immature Granulocyte % (Auto) 1.0 % Immature Granulocyte # (Auto) 0.17 K/uL Sodium Level 141 mmol/L Potassium Level 3.3 mmol/L Chloride Level 113 mmol/L Carbon Dioxide Level 22 mmol/L Anion Gap 6.0 mmol/L Blood Urea Nitrogen 27 mg/dl Creatinine 1.01 mg/dl Est Creatinine Clear Calc Drug Dose 36.5 ml/min Estimated GFR () 59.6 Estimated GFR (Non- 51.4 BUN/Creatinine Ratio 26.4 Random Glucose 83 mg/dl Calcium Level 7.5 mg/dl Magnesium Level 1.8 mg/dl Vitamin B12 Level 1087 pg/mL Folate > 24.00 ng/mL Assessment & Plan 82 y/o female with history of HTN, CKD 3, CVA, PVD presenting with diarrhea. SEVERE C. DIFFICILE COLITIS, POSSIBLY RELATED FROM CLINDAMYCIN TAKEN FOR DENTAL INFECTION -WBC 16 K, lactic acid normal, BP stable -Patient received a course of clindamycin about 1 month ago for dental infection -Tested positive for C. difficile in the ER -Given renal dysfunction, patient started on Dificid - had 3 moderate loose BMs today continue Dificid BID Day 11/05 IV NSS with K KEON ON CKD STAGE III -Patient presenting from [facility] with reports of diarrhea 1 week with bright red bleeding per rectum that began this morning -Presented with creatinine of 2.4 (baseline ~ 0.8-1.0) -Likely prerenal secondary to diarrhea in combination with TOREY inhibitor use - resolved continue NSS hold Lisinopril BRIGHT RED BLEEDING PER RECTUM -Likely due to C. difficile colitis - Hg 11--> 12--> 11 monitor - hold ASA and Trental for now HYPERTENSION -BP marginal hold Amlodipine -Holding lisinopril secondary to AK I - continue Metoprolol PVD -resume ASA, Trental in light of hematochezia hold Statin in light of diarrhea HISTORY OF CVA - hold meds as noted above ALCOHOL USE -4 ounces of liquor per day - placed on Alcohol Withdrawal Protocol, Gabapentin taper- renally dosed DVT PROPHYLAXIS -SCDs due to reports of bright red bleeding per rectum encouraged to ambulate CODE STATUS -Patient is a full code as per documentation sent from [facility]. DISPOSITION anticipate return to [facility] when medically stable Current Inpatient Medications: Current Inpatient Medications Medications (Trade) Dose Ordered Sig/Monique Route Start Time Stop Time Status Last Admin Dose Admin Acetaminophen (Tylenol Tab) 650 mg Q4H PRN PO 05/01/18 14:15 05/31/18 14:14 05/02/18 20:07 650 MG Ondansetron HCl (Zofran Inj) 4 mg Q6H PRN IV 05/01/18 14:15 05/31/18 14:14 05/02/18 08:45 4 MG Fidaxomicin (Dificid Tab) 200 mg BID PO 05/01/18 20:00 05/11/18 20:59 05/03/18 08:03 200 MG Amlodipine Besylate (Norvasc Tab) 5 mg DAILY PO 05/02/18 08:00 06/01/18 08:59 05/02/18 07:52 5 MG Metoprolol Tartrate (Lopressor Tab) 25 mg BID PO 05/01/18 20:00 05/31/18 20:59 05/02/18 19:58 25 MG Multivitamins/ Minerals (Multivitamin W/ Minerals Tab) 1 tab QAM PO 05/02/18 08:00 06/01/18 08:59 05/03/18 07:58 1 TAB Pantoprazole Sodium (Protonix Tab) 40 mg DAILY PO 05/02/18 08:00 06/01/18 08:59 05/03/18 07:58 40 MG Venlafaxine HCl (effeXOR EXTENDED REL CAP) 150 mg DAILY PO 05/02/18 08:00 06/01/18 08:59 05/03/18 07:58 150 MG Calcium Carbonate (oS-Philippe 500 TAB) 1,250 mg DAILY PO 05/02/18 08:00 06/01/18 08:59 05/03/18 07:58 1,250 MG Potassium Chloride/Sodium Chloride 1,000 ml @ 75 mls/hr [id number] IV 05/02/18 10:00 06/01/18 09:59 05/03/18 11:27 75 MLS/HR Thiamine HCl (Vitamin B-1 Tab) 100 mg QAM PO 05/02/18 10:00 06/01/18 09:59 05/03/18 09:27 100 MG Lorazepam (Ativan Tab) 1 mg ONE PRN PO 05/02/18 09:15 Lorazepam (Ativan Tab) 0.5 mg Q8H PRN PO 05/02/18 09:15 06/01/18 09:14 05/02/18 20:06 0.5 MG Gabapentin (Neurontin Tab) 600 mg Q24H PO 05/04/18 05:00 05/04/18 05:01 Gabapentin (Neurontin Cap) 400 mg Q24H PO 05/05/18 05:00 05/05/18 05:01 Gabapentin (Neurontin Cap) 200 mg Q24H PO 05/06/18 05:00 05/06/18 05:01 Potassium Chloride (Klor-Con Tab) 40 meq QAM PO 05/04/18 08:00 06/03/18 07:59 UNV Potassium Chloride (Klor-Con Tab) 40 meq 1537 ONCE PO 05/03/18 15:37 05/03/18 15:38 UNV
[2018-05-03] MEDS: LORAZEPAM 0.5 MG TAB PO PRN (20:59)
[2018-05-03] MEDS: ACETAMINOPHEN 325 MG TAB PO PRN (21:01)
[2018-05-03 23:03] VITALS: BP 103/58; PULSE 91; TEMP 36.6; O2SAT 93
[2018-05-04] MEDS: NSS + 20MEQ KCL 1000ML 1,000 ML IV SCH ×2 (00:51→14:01)
[2018-05-04] MEDS ORDERED: GABAPENTIN 600MG X1 DOSE PO SCH (05:00)
[2018-05-04 06:54] VITALS: BP 180/68; PULSE 90; TEMP 36.7; O2SAT 94
[2018-05-04 07:23] LABS: BASO % 0.3 %; BASO ABS # 0.04 K/uL (0-0.2); EOS % 0.7 %; EOS ABS # 0.08 K/uL (0-0.5); HEMATOCRIT 33.5 % (37-47); HEMOGLOBIN 10.9 g/dL (12.0-16.0); IG# 0.08 K/uL (0.00-0.02); LYMPH ABS # 2.45 K/uL (1.2-3.4); MEAN CELL VOLUME 89.8 fL (80-100); MEAN CORPUSCULAR HEMOGLOBIN 29.2 pg (25-34); MEAN CORPUSCULAR HGB CONC 32.5 g/dl (32-36); MONO % 11.5 %; MONO ABS # 1.41 K/uL (0.11-0.59); NEUT % 66.8 %; NEUT ABS # 8.22 K/uL (1.4-6.5); PLATELET COUNT 294 K/uL (130-400); RED CELL DISTRIBUTION WIDTH CV 14.7 % (11.5-14.5); RED CELL DISTRIBUTION WIDTH SD 48.2 fL (36.4-46.3); WHITE BLOOD COUNT 12.28 K/uL (4.8-10.8)
[2018-05-04 08:05] LABS: CREATININE 0.78 mg/dl (0.60-1.20); POTASSIUM 3.7 mmol/L (3.5-5.1)
--- NOTE | 2018-05-04 08:20 | EMERGENCY ROOM VISIT NOTE ---
History Report prepared by Fredrick: Juanita Block Under the Supervision of: Dr. Sofy Jonas D.O. First contact with patient: 10:05 Chief Complaint: ILLNESS Stated Complaint: LETHARGIC History of Present Illness The patient is an 82 year old female who presents to the Emergency Room with complaints of worsening illness starting 4 days ago. The patient states that normally she is constipated and hasn't had issues like this in the past. She notes that she recently was put on antibiotics for having a tooth pulled, but doesn't remember what it is called. The patient complains of abdominal pain, nausea, and vomiting. She states that her abdominal pain feels like she is bloated. She reports that she has not had nausea and vomiting since her diarrhea started. The patient denies fever, chills, shortness of breath, cough, chest pain, and any other medication changes. Source of History: patient Onset: 4 days ago Position: abdomen Quality: other (diarrhea) Timing: worsening Associated Symptoms: + nausea, + vomiting, + abdominal pain, No fevers, No chills, No cough, No chest pain, No SOB Review of Systems See HPI for pertinent positives & negatives. A total of 10 systems reviewed and were otherwise negative. Past Medical & Surgical Medical Problems: (1) Ankle fracture (2) Anxiety (3) C. difficile colitis (4) CKD stage 3 due to type 1 diabetes mellitus (5) CVA (cerebral vascular accident) (6) Depression (7) Lower extremity angioplasty (8) PVD (peripheral vascular disease) (9) TIA (transient ischemic attack) Surgical Problems: (1) History of left-sided carotid endarterectomy (2) History of right-sided carotid endarterectomy (3) History of tonsillectomy and adenoidectomy (4) Hx of cholecystectomy Family History No pertinent family history Social History Smoking Status: Never Smoker Alcohol Use: heavy Drug Use: none Marital Status: Housing Status: group home Occupation Status: retired Current/Historical Medications Scheduled Amlodipine (Norvasc), 5 MG PO DAILY Aspirin (Aspirin Ec), 81 MG PO DAILY Calcium Carbonate (Antacid) (Calcium Carbonate), 1,296 MG PO DAILY Carbamide Peroxide (Otic) (Debrox), 5 DROPS OT BID Ergocalciferol (Vitamin D 13123 Unit), 50,000 UNIT PO MONTHLY Gabapentin (Neurontin), 300 MG PO DAILY Lisinopril (Zestril), 40 MG PO DAILY Metoprolol Tartrate (Lopressor) (Lopressor), 25 MG PO BID Multiple Vitamins W/ Minerals (Therems M), 1 TAB PO QAM Pantoprazole (Protonix), 40 MG PO DAILY Pentoxifylline (Pentoxifylline ER), 400 MG PO TID Pravastatin Sodium (Pravastatin Sodium), 80 MG PO QPM Rosuvastatin Calcium (Crestor), 20 MG PO DAILY Venlafaxine Hcl (Effexor Extended Rel), 150 MG PO DAILY Scheduled PRN Acetaminophen Tab (Tylenol), 650 MG PO Q3-4HRS PRN for Pain or Fever Calcium Carbonate (Antacid) (Antacid), 500 MG PO TID PRN for HEARTBURN/ INDIGESTION Loperamide Hcl (Imodium), 4 MG PO UD PRN for Diarrhea Loperamide Hcl (Imodium), 2 MG PO UD PRN for Diarrhea Lorazepam (Ativan), 0.5 MG PO Q6H PRN for Anxiety Ondansetron Hcl (Zofran), 4 MG PO Q6 PRN for Nausea Prochlorperazine (Compro), 25 MG RI Q12 PRN for Nausea Allergies Coded Allergies: Amoxicillin (Verified Allergy, Unknown, BETA-LACTAMS, 05/01/18) Clavulanic Acid (Verified Allergy, Unknown, BETA-LACTAMS, 05/01/18) Codeine (Verified Allergy, Unknown, 05/01/18) Hydrocodone (Verified Allergy, Unknown, 05/01/18) Morphine (Verified Allergy, Unknown, 05/01/18) Physical Exam Vital Signs Date Time Temp Pulse Resp B/P (MAP) Pulse Ox O2 Delivery O2 Flow Rate FiO2 05/01/18 13:12 99 22 145/54 95 Nasal Cannula 2.0 05/01/18 12:01 158/49 05/01/18 12:00 89 20 05/01/18 11:30 97 25 98 05/01/18 11:11 130/56 05/01/18 11:09 102 18 130/56 98 Nasal Cannula 2.0 05/01/18 11:00 100 26 05/01/18 10:31 141/73 05/01/18 10:30 102 20 05/01/18 10:01 151/53 05/01/18 10:00 93 23 95 05/01/18 09:54 92 05/01/18 09:52 93 Nasal Cannula 4.0 05/01/18 09:41 37.9 100 18 124/63 88 Room Air 05/01/18 09:37 124/63 Physical Exam GENERAL: alert, well appearing, well nourished, no distress, non-toxic, hard of hearing. EYE EXAM: normal conjunctiva, PERRL and EOM's grossly intact OROPHARYNX: no exudate, no erythema, lips, buccal mucosa, and tongue normal and mucous membranes are very dry NECK: supple, no nuchal rigidity, no adenopathy, non-tender LUNGS: Decreased breath sounds, but clear to auscultation. No wheezes, rhonchi, or rales. Normal chest wall mechanics HEART: no murmurs, S1 normal and S2 normal ABDOMEN: abdomen soft, non-tender, normo-active bowel sounds, no masses, no rebound or guarding. BACK: Back is symmetrical on inspection and there is no deformity, no midline tenderness, no CVA tenderness. SKIN: no rashes and no bruising UPPER EXTREMITIES: upper extremities are grossly normal. LOWER EXTREMITIES: No pitting edema. NEURO EXAM: Normal sensorium, cranial nerves II-XII grossly intact, normal speech, no gross weakness of arms, no gross weakness of legs. Medical Decision & Procedures ER Provider Diagnostic Interpretation: Radiology results have been interpreted by the radiologist and reviewed by me. SINGLE VIEW CHEST CLINICAL HISTORY: Fever. Lethargy. FINDINGS: An AP, portable, upright chest radiograph is compared to study dated 03/18/2015 and correlated with chest CT dated 11/26/2013. The examination is degraded by portable technique and patient rotation. The heart is mildly enlarged and there is atherosclerotic calcification of the thoracic aorta. The pulmonary vasculature is noncongested. Emphysema and chronic interstitial thickening are similar to previous. There is no airspace consolidation or pleural effusion. Scarring is noted at the right lung base. No pneumothorax is seen. The skeletal structures are osteopenic. There are numerous healed right-sided rib fractures. Degenerative change is noted in the thoracic spine. IMPRESSION: Cardiomegaly, mild emphysema, and chronic parenchymal changes as above. No acute cardiopulmonary abnormality is seen. Electronically signed by: Natan Meredith M.D. 05/01/2018 10:37 AM Dictated Date/Time: 05/01/2018 10:35 AM ABD/PELVIS NO IV OR ORAL CONT CT DOSE: 636.84 mGycm HISTORY: Bowel change. Pain. Nausea. abd pain, diarrhea TECHNIQUE: Multiaxial CT images of the abdomen and pelvis were performed without contrast. A dose lowering technique was utilized adhering to the principles of ALARA. COMPARISON STUDY: 06/03/2014 FINDINGS: Lung bases are considered clear. Minimal dependent basilar atelectasis. Liver spleen and pancreas are unremarkable. Hyperplastic change of the adrenals are similar. Right kidney shows several vascular calcifications. Left kidney shows an extrarenal pelvis. There is no evidence for hydronephrosis. There is a 3 mm posterior hyperdense cyst. Bowel pattern shows fluid-filled loops of colon. There appears to be a component of mild generalized wall thickening and/or edematous change. This is associated with lumen fluid. Bladder is mildly distended. There is a fibroid-type uterus. IMPRESSION: 1. Findings consistent with generalized wall edema and mild distention of the colon consistent with a nonspecific colitis/enteritis. 2. No evidence for abscess collection or obstructive change. 3. Left kidney extrarenal pelvis unchanged from the prior study. The above report was generated using voice recognition software. It may contain grammatical, syntax or spelling errors. Electronically signed by: Tavon Mcintosh M.D. 05/01/2018 1:05 PM Dictated Date/Time: 05/01/2018 12:53 PM Laboratory Results Test 05/01/18 09:45 05/01/18 10:54 Toxic Vacuolation 1+ Total Bilirubin 0.3 mg/dl (0.2-1) Aspartate Amino Transf (AST/SGOT) 15 U/L (15-37) Alanine Aminotransferase (ALT/SGPT) 10 U/L (12-78) Alkaline Phosphatase 75 U/L (45-117) Total Protein 6.7 gm/dl (6.4-8.2) Albumin 2.8 gm/dl (3.4-5.0) Globulin 3.9 gm/dl (2.5-4.0) Albumin/Globulin Ratio 0.7 (0.9-2) Bedside Lactic Acid Venous 0.90 mmol/L (0.90-1.70) Date/Time Source Procedure Growth Status 05/01/18 12:35 Stool C.difficile Toxin B Gene (PCR) - Final Positive for C. difficile toxin B gene Complete Laboratory results per my review. Medications Administered Medications (Trade) Dose Ordered Sig/Monique Route Start Time Stop Time Status Last Admin Dose Admin Sodium Chloride 1,000 ml @ 999 mls/hr Q1H1M STAT IV 05/01/18 10:29 05/01/18 11:29 DC 05/01/18 11:09 999 MLS/HR Sodium Chloride 1,000 ml @ 999 mls/hr Q1H1M STAT IV 05/01/18 10:44 05/01/18 11:44 DC 05/01/18 11:09 999 MLS/HR Fidaxomicin (Dificid Tab) 200 mg NOW STAT PO 05/01/18 13:43 05/01/18 13:44 DC 05/01/18 15:26 200 MG ECG Per My Interpretation Indication: nausea Rate (beats per minute): 96 Rhythm: sinus rhythm Findings: ST depression (slight in V3-V6), other (normal axis, normal intervals ) Comparison ECG Date: 03/18/2015 Change: ST depressions slightly worse compared to prior. ED Course 1008: The patient was evaluated in room C6. A complete history and physical exam was performed. 1029: Ordered NSS 1000 ml @ 999 mls/hr IV. 1044: Ordered NSS 1000 ml @ 999 mls/hr IV. 1320: I reevaluated the patient and updated her on her test results. I notified her of the treatment plan and she verbally agrees and understands. 1329: I reviewed the patient's case with MIGDALIA Almodovar- [facility] Hospitalist. She will evaluate the patient for further management. 1343: Ordered Fidaxomicin 200 mg PO. Medical Decision Differential diagnoses includes but is not limited to gastritis, peptic ulcer disease, GERD, gallbladder disease, pancreatitis, small bowel obstruction, acute coronary syndrome, pericarditis, ischemic bowel, irritable bowel disease, irritable bowel syndrome, appendicitis, diverticulitis, malignancy, hernia, urinary tract infection, torsion, /ectopic (if female), perforation, trauma, infectious. Patient here found to have acute renal failure likely secondary to dehydration from diarrhea. Diarrhea most likely C. difficile due to recent use of antibiotics. Patient here clinically markedly dehydrated, however never hypotensive. Tachycardia was improved with IV fluid resuscitation. Patient with no other history or medications to suggest immunocompromise status. Stool culture sent, blood culture sent as a precaution. UA still pending at the time of discussion with the hospitalist for additional evaluation and management. Patient started on meds for C. difficile once that culture was reported positive and placed on isolation precautions. No other evidence of acute intra- abdominal or intrapelvic pathology noted on CT. I do not suspect acute vascular etiology. Despite leukocytosis have a lower suspicion for bacteremia/sepsis. Patient aware of all results and agreeable with plan. Medication Reconcilliation Current Medication List: was personally reviewed by me Blood Pressure Screening Patient's blood pressure: Elevated blood pressure Will be further monitored by the hospitalist. Consults Time Called: 1325 Consulting Physician: HELDER Almodovar Hospitalist Returned Call: [phone] I reviewed the patient's case with HELDER Almodovar Hospitalist. She will evaluate the patient for further management. Impression Primary Impression: Acute renal failure Additional Impressions: Diarrhea Dehydration C. difficile colitis Anemia Scribe Attestation The scribe's documentation has been prepared under my direction and personally reviewed by me in its entirety. I confirm that the note above accurately reflects all work, treatment, procedures, and medical decision making performed by me. Departure Information Dispostion Being Evaluated By Hospitalist Referrals PENELOPE MELO (PCP) Patient Instructions My [facility] Problem Qualifiers Primary Impression: Acute renal failure Acute renal failure type: unspecified Qualified Codes: N17.9 - Acute kidney failure, unspecified Additional Impressions: Diarrhea Diarrhea type: unspecified type Qualified Codes: R19.7 - Diarrhea, unspecified Anemia Anemia type: unspecified type Qualified Codes: D64.9 - Anemia, unspecified
[2018-05-04] MEDS: FIDAXOMICIN TAB 200 MG TAB PO SCH ×2 (08:52→19:47)
[2018-05-04] MEDS: VENLAFAXINE HCL XR 150 MG CAPXR PO SCH (08:52)
[2018-05-04] MEDS: POTASSIUM CHLORIDE 20 MEQ TABCR PO SCH (08:52)
[2018-05-04] MEDS: PANTOprazole SOD 40 MG TAB PO SCH (08:53)
[2018-05-04] MEDS: THIAMINE HCL 100 MG TAB PO SCH (08:53)
[2018-05-04] MEDS: CALCIUM CARBONATE 1250MG TAB PO SCH (08:53)
[2018-05-04] MEDS: CEROVITE ADV FORMULA TAB PO SCH (08:53)
[2018-05-04] MEDS: METOPROLOL TARTRATE 25 MG TAB PO SCH ×2 (08:53→19:45)
--- NOTE | 2018-05-04 12:39 | Progress Note ---
Medicine Progress Note Date & Time of Visit: May 04, 2018 at 12:39. Subjective seen resting in bed, comfortable diarrhea improving no abdominal pain, nausea, chills no other complaints Objective Last 8 Hrs Date Time Temp Pulse Resp B/P (MAP) Pulse Ox O2 Delivery O2 Flow Rate FiO2 05/04/18 10:49 Room Air 05/04/18 06:54 36.7 90 16 180/68 (105) 94 Room Air Physical Exam: General- oriented x 2, not in distress, speaking in sentences with no effort Head- atraumatic Eyes-anicteric Neck- no JVD Lungs- clear BS bilaterally Heart- regular rhythm; no murmur, normal rate Abdomen- normal bowel sounds, soft, nontender Extremities- no pretibial edema, no calf tenderness Neuro- alert, oriented x 2 decreased hearing no other focal neuro deficits Skin- warm & dry Laboratory Results: Last 24 Hours Test 05/04/18 07:04 White Blood Count 12.28 K/uL Red Blood Count 3.73 M/uL Hemoglobin 10.9 g/dL Hematocrit 33.5 % Mean Corpuscular Volume 89.8 fL Mean Corpuscular Hemoglobin 29.2 pg Mean Corpuscular Hemoglobin Concent 32.5 g/dl Platelet Count 294 K/uL Mean Platelet Volume 10.0 fL Neutrophils (%) (Auto) 66.8 % Lymphocytes (%) (Auto) 20.0 % Monocytes (%) (Auto) 11.5 % Eosinophils (%) (Auto) 0.7 % Basophils (%) (Auto) 0.3 % Neutrophils # (Auto) 8.22 K/uL Lymphocytes # (Auto) 2.45 K/uL Monocytes # (Auto) 1.41 K/uL Eosinophils # (Auto) 0.08 K/uL Basophils # (Auto) 0.04 K/uL RDW Standard Deviation 48.2 fL RDW Coefficient of Variation 14.7 % Immature Granulocyte % (Auto) 0.7 % Immature Granulocyte # (Auto) 0.08 K/uL Sodium Level 141 mmol/L Potassium Level 3.7 mmol/L Chloride Level 114 mmol/L Carbon Dioxide Level 21 mmol/L Anion Gap 6.0 mmol/L Blood Urea Nitrogen 15 mg/dl Creatinine 0.78 mg/dl Est Creatinine Clear Calc Drug Dose 47.2 ml/min Estimated GFR () 81.5 Estimated GFR (Non- 70.3 BUN/Creatinine Ratio 19.4 Random Glucose 82 mg/dl Calcium Level 8.0 mg/dl Magnesium Level 1.6 mg/dl Assessment & Plan 82 y/o female with history of HTN, CKD 3, CVA, PVD presenting with diarrhea. SEVERE C. DIFFICILE COLITIS, POSSIBLY RELATED FROM CLINDAMYCIN TAKEN FOR DENTAL INFECTION -WBC 16 K, lactic acid normal, BP stable -Patient received a course of clindamycin about 1 month ago for dental infection -Tested positive for C. difficile in the ER -Given renal dysfunction, patient started on Dificid - diarrhea improving continue Dificid BID Day 01/03 IV NSS with K KEON ON CKD STAGE III -Patient presenting from [facility] with reports of diarrhea 1 week with bright red bleeding per rectum that began this morning -Presented with creatinine of 2.4 (baseline ~ 0.8-1.0) -Likely prerenal secondary to diarrhea in combination with TOREY inhibitor use - resolved continue NSS hold Lisinopril BRIGHT RED BLEEDING PER RECTUM -Likely due to C. difficile colitis - Hg 11--> 12--> 11 monitor - hold ASA and Trental for now - monitor HYPERTENSION -BP marginal hold Amlodipine -Holding lisinopril secondary to AK I - continue Metoprolol PVD -resume ASA, Trental in light of hematochezia hold Statin in light of diarrhea HISTORY OF CVA - hold meds as noted above ALCOHOL USE -4 ounces of liquor per day - placed on Alcohol Withdrawal Protocol, Gabapentin taper- renally dosed DVT PROPHYLAXIS -SCDs due to reports of bright red bleeding per rectum encouraged to ambulate CODE STATUS -Patient is a full code as per documentation sent from [facility]. DISPOSITION anticipate return to [facility] when medically stable Current Inpatient Medications: Current Inpatient Medications Medications (Trade) Dose Ordered Sig/[facility] Route Start Time Stop Time Status Last Admin Dose Admin Acetaminophen (Tylenol Tab) 650 mg Q4H PRN PO 05/01/18 14:15 05/31/18 14:14 05/03/18 21:01 650 MG Ondansetron HCl (Zofran Inj) 4 mg Q6H PRN IV 05/01/18 14:15 05/31/18 14:14 05/02/18 08:45 4 MG Fidaxomicin (Dificid Tab) 200 mg BID PO 05/01/18 20:00 05/11/18 20:59 05/04/18 08:52 200 MG Metoprolol Tartrate (Lopressor Tab) 25 mg BID PO 05/01/18 20:00 05/31/18 20:59 05/04/18 08:53 25 MG Multivitamins/ Minerals (Multivitamin W/ Minerals Tab) 1 tab QAM PO 05/02/18 08:00 06/01/18 08:59 05/04/18 08:53 1 TAB Pantoprazole Sodium (Protonix Tab) 40 mg DAILY PO 05/02/18 08:00 06/01/18 08:59 05/04/18 08:53 40 MG Venlafaxine HCl (effeXOR EXTENDED REL CAP) 150 mg DAILY PO 05/02/18 08:00 06/01/18 08:59 05/04/18 08:52 150 MG Calcium Carbonate (oS-Philippe 500 TAB) 1,250 mg DAILY PO 05/02/18 08:00 06/01/18 08:59 05/04/18 08:53 1,250 MG Potassium Chloride/Sodium Chloride 1,000 ml @ 75 mls/hr [id number] IV 05/02/18 10:00 06/01/18 09:59 05/04/18 00:51 75 MLS/HR Thiamine HCl (Vitamin B-1 Tab) 100 mg QAM PO 05/02/18 10:00 06/01/18 09:59 05/04/18 08:53 100 MG Lorazepam (Ativan Tab) 1 mg ONE PRN PO 05/02/18 09:15 Lorazepam (Ativan Tab) 0.5 mg Q8H PRN PO 05/02/18 09:15 06/01/18 09:14 05/03/18 20:59 0.5 MG Gabapentin (Neurontin Cap) 400 mg Q24H PO 05/05/18 05:00 05/05/18 05:01 Gabapentin (Neurontin Cap) 200 mg Q24H PO 05/06/18 05:00 05/06/18 05:01 Potassium Chloride (Klor-Con Tab) 40 meq QAM PO 05/04/18 08:00 06/03/18 07:59 05/04/18 08:52 40 MEQ Magnesium Sulfate 100 ml @ 100 mls/hr Q1H IV 05/04/18 12:00 05/04/18 13:59
[2018-05-04] MEDS: MAGNESIUM SULFATE 1GM / D5W 100 ML IV SCH ×2 (13:00→14:01)
[2018-05-04 14:57] VITALS: BP 135/64; PULSE 78; TEMP 36.4; O2SAT 94
[2018-05-04 16:00] VITALS: O2SAT 94
[2018-05-04 19:44] VITALS: BP 154/77; PULSE 81
[2018-05-04] MEDS: LORAZEPAM 0.5 MG TAB PO PRN (19:53)
[2018-05-04] MEDS: ACETAMINOPHEN 325 MG TAB PO PRN (19:53)
[2018-05-05 00:02] VITALS: BP 152/72; PULSE 49; TEMP 36.7; O2SAT 95
[2018-05-05] MEDS ORDERED: GABAPENTIN 400MG X1 DOSE PO SCH (05:00)
[2018-05-05 08:08] LABS: BASO % 0.4 %; BASO ABS # 0.04 K/uL (0-0.2); HEMATOCRIT 34.9 % (37-47); HEMOGLOBIN 11.5 g/dL (12.0-16.0); IG# 0.17 K/uL (0.00-0.02); LYMPH % 20.5 %; LYMPH ABS # 2.32 K/uL (1.2-3.4); MEAN CORPUSCULAR HEMOGLOBIN 29.3 pg (25-34); MEAN PLATELET VOLUME 9.9 fL (7.4-10.4); MONO % 10.1 %; MONO ABS # 1.14 K/uL (0.11-0.59); NEUT % 67.5 %; NEUT ABS # 7.67 K/uL (1.4-6.5); PLATELET COUNT 328 K/uL (130-400); RED CELL DISTRIBUTION WIDTH CV 14.8 % (11.5-14.5); RED CELL DISTRIBUTION WIDTH SD 48.2 fL (36.4-46.3); WHITE BLOOD COUNT 11.34 K/uL (4.8-10.8)
[2018-05-05 08:44] LABS: CALCIUM 8.3 mg/dl (8.5-10.1); CREATININE 0.8 mg/dl (0.60-1.20)
[2018-05-05 08:53] LABS: POTASSIUM 4.3 mmol/L (3.5-5.1)
[2018-05-05] MEDS: FIDAXOMICIN TAB 200 MG TAB PO SCH (09:13)
[2018-05-05] MEDS: VENLAFAXINE HCL XR 150 MG CAPXR PO SCH (09:14)
[2018-05-05] MEDS: METOPROLOL TARTRATE 25 MG TAB PO SCH ×2 (09:14→20:27)
[2018-05-05] MEDS: CEROVITE ADV FORMULA TAB PO SCH (09:14)
[2018-05-05] MEDS: POTASSIUM CHLORIDE 20 MEQ TABCR PO SCH (09:14)
[2018-05-05] MEDS: PANTOprazole SOD 40 MG TAB PO SCH (09:15)
[2018-05-05] MEDS: NSS + 20MEQ KCL 1000ML 1,000 ML IV SCH (09:15)
[2018-05-05] MEDS: CALCIUM CARBONATE 1250MG TAB PO SCH (09:15)
[2018-05-05] MEDS: THIAMINE HCL 100 MG TAB PO SCH (09:15)
[2018-05-05 11:25] VITALS: BP 179/75; PULSE 72; TEMP 36.6; O2SAT 95
[2018-05-05] MEDS: MAGNESIUM SULFATE 1GM / D5W 1 GM in PREMIXED IN D5W 100 ML IV SCH ×2 (14:03→15:29)
[2018-05-05] MEDS: RASPBERRY SYRUP 5 ML UDP PO SCH ×3 (14:03→23:58)
[2018-05-05] MEDS: VANCOMYCIN HCL 125 MG/2.5ML SOLN PO SCH ×3 (14:04→23:58)
[2018-05-05] MEDS ORDERED: LISINOPRIL 40 MG TAB PO ONE (14:26)
--- NOTE | 2018-05-05 14:28 | Progress Note ---
Medicine Progress Note Date & Time of Visit: May 05, 2018 at 14:24. Subjective Seen resting in bed, sleeping but easily awakened States she feels okay overall Still having some diarrhea, loose bowel movements about 3-4 times Denies abdominal pain, nausea vomiting, chills No other symptoms Objective Last 8 Hrs Date Time Temp Pulse Resp B/P (MAP) Pulse Ox O2 Delivery O2 Flow Rate FiO2 05/05/18 11:25 36.6 72 20 179/75 (109) 95 Room Air 05/05/18 11:07 Room Air Physical Exam: General- oriented x 2, not in distress, speaking in sentences with no effort Head- atraumatic Eyes-anicteric Neck- no JVD Lungs- clear BS bilaterally, no rales or wheezes Heart- regular rhythm; no murmur, normal rate Abdomen- normal bowel sounds, soft, positive moderate tenderness to left lower quadrant Extremities- no pretibial edema, no calf tenderness Neuro- alert, oriented x 2 decreased hearing no other focal neuro deficits Skin- warm & dry Laboratory Results: Last 24 Hours Test 05/05/18 07:57 White Blood Count 11.34 K/uL Red Blood Count 3.92 M/uL Hemoglobin 11.5 g/dL Hematocrit 34.9 % Mean Corpuscular Volume 89.0 fL Mean Corpuscular Hemoglobin 29.3 pg Mean Corpuscular Hemoglobin Concent 33.0 g/dl Platelet Count 328 K/uL Mean Platelet Volume 9.9 fL Neutrophils (%) (Auto) 67.5 % Lymphocytes (%) (Auto) 20.5 % Monocytes (%) (Auto) 10.1 % Eosinophils (%) (Auto) 0.0 % Basophils (%) (Auto) 0.4 % Neutrophils # (Auto) 7.67 K/uL Lymphocytes # (Auto) 2.32 K/uL Monocytes # (Auto) 1.14 K/uL Eosinophils # (Auto) 0.00 K/uL Basophils # (Auto) 0.04 K/uL RDW Standard Deviation 48.2 fL RDW Coefficient of Variation 14.8 % Immature Granulocyte % (Auto) 1.5 % Immature Granulocyte # (Auto) 0.17 K/uL Sodium Level 140 mmol/L Potassium Level 4.3 mmol/L Chloride Level 111 mmol/L Carbon Dioxide Level 24 mmol/L Anion Gap 5.0 mmol/L Blood Urea Nitrogen 9 mg/dl Creatinine 0.80 mg/dl Est Creatinine Clear Calc Drug Dose 46.0 ml/min Estimated GFR () 79.0 Estimated GFR (Non- 68.2 BUN/Creatinine Ratio 11.2 Random Glucose 83 mg/dl Calcium Level 8.3 mg/dl Magnesium Level 1.6 mg/dl Chemistry Specimen Hemolysis Assessment & Plan 82 y/o female with history of HTN, CKD 3, CVA, PVD presenting with diarrhea. SEVERE C. DIFFICILE COLITIS, POSSIBLY RELATED FROM CLINDAMYCIN TAKEN FOR DENTAL INFECTION -WBC 16 K, lactic acid normal, BP stable -Patient received a course of clindamycin about 1 month ago for dental infection -Tested positive for C. difficile in the ER -Given renal dysfunction, patient started on Dificid -Still having some diarrhea Positive for left lower quadrant tenderness today -Check CTs scan of the abdomen and pelvis -Change Dificid to vancomycin p.o. 4 times daily 10 more days Continue IV NSS KEON ON CKD STAGE III -Patient presenting from [facility] with reports of diarrhea 1 week with bright red bleeding per rectum that began this morning -Presented with creatinine of 2.4 (baseline ~ 0.8-1.0) -Likely prerenal secondary to diarrhea in combination with TOREY inhibitor use - resolved continue NSS hold Lisinopril BRIGHT RED BLEEDING PER RECTUM -Likely due to C. difficile colitis - Hg 11--> 12--> 11 monitor - hold ASA and Trental for now - monitor HYPERTENSION -BP marginal - resume Amlodipine Lisinopril on old - continue Metoprolol PVD -resume ASA, Trental in light of hematochezia hold Statin in light of diarrhea HISTORY OF CVA - hold meds as noted above ALCOHOL USE -4 ounces of liquor per day - placed on Alcohol Withdrawal Protocol, Gabapentin taper- renally dosed DVT PROPHYLAXIS -SCDs due to reports of bright red bleeding per rectum encouraged to ambulate CODE STATUS -Patient is a full code as per documentation sent from [facility]. DISPOSITION anticipate return to [facility] when medically stable Current Inpatient Medications: Current Inpatient Medications Medications (Trade) Dose Ordered Sig/Monique Route Start Time Stop Time Status Last Admin Dose Admin Acetaminophen (Tylenol Tab) 650 mg Q4H PRN PO 05/01/18 14:15 05/31/18 14:14 05/04/18 19:53 650 MG Ondansetron HCl (Zofran Inj) 4 mg Q6H PRN IV 05/01/18 14:15 05/31/18 14:14 05/02/18 08:45 4 MG Metoprolol Tartrate (Lopressor Tab) 25 mg BID PO 05/01/18 20:00 05/31/18 20:59 05/05/18 09:14 25 MG Multivitamins/ Minerals (Multivitamin W/ Minerals Tab) 1 tab QAM PO 05/02/18 08:00 06/01/18 08:59 05/05/18 09:14 1 TAB Pantoprazole Sodium (Protonix Tab) 40 mg DAILY PO 05/02/18 08:00 06/01/18 08:59 05/05/18 09:15 40 MG Venlafaxine HCl (effeXOR EXTENDED REL CAP) 150 mg DAILY PO 05/02/18 08:00 06/01/18 08:59 05/05/18 09:14 150 MG Calcium Carbonate (oS-Philippe 500 TAB) 1,250 mg DAILY PO 05/02/18 08:00 06/01/18 08:59 05/05/18 09:15 1,250 MG Potassium Chloride/Sodium Chloride 1,000 ml @ 60 mls/hr [id number] IV 05/02/18 10:00 06/01/18 09:59 05/05/18 09:15 60 MLS/HR Thiamine HCl (Vitamin B-1 Tab) 100 mg QAM PO 05/02/18 10:00 06/01/18 09:59 05/05/18 09:15 100 MG Lorazepam (Ativan Tab) 1 mg ONE PRN PO 05/02/18 09:15 Lorazepam (Ativan Tab) 0.5 mg Q8H PRN PO 05/02/18 09:15 06/01/18 09:14 05/04/18 19:53 0.5 MG Gabapentin (Neurontin Cap) 200 mg Q24H PO 05/06/18 05:00 05/06/18 05:01 Potassium Chloride (Klor-Con Tab) 40 meq QAM PO 05/04/18 08:00 06/03/18 07:59 05/05/18 09:14 40 MEQ Magnesium Sulfate 1 gm/Prmx 200 ml @ 100 mls/hr Q1H IV 05/05/18 12:45 05/05/18 14:44 05/05/18 14:03 100 MLS/HR Vancomycin HCl (Vancomycin Oral Soln) 125 mg Q6 PO 05/05/18 13:00 05/15/18 11:59 05/05/18 14:04 125 MG Raspberry (Raspberry Syrup 5ml Cup) 5 ml Q6 PO 05/05/18 13:00 05/19/18 12:59 05/05/18 14:03 5 ML
[2018-05-05] MEDS ORDERED: AMLODIPINE BESYLATE 5 MG TAB PO ONE (14:30)
--- NOTE | 2018-05-05 14:58 | DIAGNOSTIC IMAGING REPORT ---
ABD/PELVIS NO IV OR ORAL CONT CLINICAL HISTORY: 82 years-old Female presenting with severe c diff, LLQ tenderness. TECHNIQUE: Multidetector CT of the abdomen and pelvis was performed without the use of intravenous contrast. IV contrast: None. A dose lowering technique was used consistent with the principles of ALARA (as low as reasonably achievable). COMPARISON: 05/01/2018. CT DOSE (mGy.cm): The estimated cumulative dose is 441.69 mGy.cm. FINDINGS: Director Of Cardiopulmonary Services topogram: Cholecystectomy clips. Lung bases: Interval increase in dependent consolidation volume loss consistent with increased passive atelectasis. Smooth interlobular septal thickening at the lung bases. Coronary artery and mitral annular calcification. Normal heart size. Increased size of the now small to moderate bilateral pleural effusions. No pericardial effusion. Liver: Normal morphology. Normal density. Biliary: Mild biliary ductal prominence likely a reservoir effect in the post cholecystectomy state. Gallbladder surgically absent. Pancreas: Mild parenchymal atrophy. Spleen: Normal noncontrast appearance. Adrenal glands: 11 mm nodule in the medial limb of the left adrenal gland, indeterminate by density. Normal noncontrast appearance of the right adrenal gland. Kidneys and ureters: Moderate pelvocaliectasis of the left kidney suspected, unchanged from prior exams. The left ureter beyond the ureteropelvic junction is nondilated. Mild urothelial thickening may be present on the right. No right hydronephrosis. No nephrolithiasis. Renal vascular calcification. Bladder: Circumferential bladder wall thickening. Pelvic organs: Enlarged appearance of the uterus with calcification consistent with fibroid uterus. Ovaries poorly evaluated in the absence of intravenous contrast. Apparent prominence of the left ovary is similar in appearance to the prior exam. Bowel: Wall thickening of the rectum extending proximally involving the descending and transverse colon. The ascending colon may be involved to a lesser degree. Pericolonic inflammatory change noted along the descending and sigmoid colon, which may be increased from prior. Peritoneal cavity: No free fluid or intraperitoneal gas. The absence of intravenous contrast limits evaluation for abscess. Lymph nodes: No gross lymphadenopathy allowing for noncontrast technique. Vasculature: Atherosclerosis of the normal caliber abdominal aorta. Abdominal wall: Mild body wall edema. Musculoskeletal: Degenerative changes of the spine. IMPRESSION: 1. Stable to slight interval worsening of colitis most prominently involving the descending colon through the rectum with lesser involvement of the transverse and right colon. No bowel obstruction. No perforation. 2. Indeterminate lobe millimeters left adrenal nodule. 3. Increased bibasilar passive atelectasis with small to moderate bilateral pleural effusions. 4. Findings suggest volume overload. Electronically signed by: Adrian Rosario M.D. 05/05/2018 2:57 PM Dictated Date/Time: 05/05/2018 2:36 PM
[2018-05-05 15:03] VITALS: BP 197/85; PULSE 76; TEMP 36.5; O2SAT 95
[2018-05-05 17:04] VITALS: BP 174/74; PULSE 75
[2018-05-05] MEDS: LORAZEPAM 0.5 MG TAB PO PRN (20:27)
[2018-05-05] MEDS: ACETAMINOPHEN 325 MG TAB PO PRN (20:28)
[2018-05-06 00:20] VITALS: BP 183/71; PULSE 75; TEMP 36.5; O2SAT 93
[2018-05-06] MEDS: NSS + 20MEQ KCL 1000ML 1,000 ML IV SCH (04:26)
[2018-05-06] MEDS ORDERED: GABAPENTIN 200MG X1 DOSE PO SCH (05:00)
[2018-05-06] MEDS: RASPBERRY SYRUP 5 ML UDP PO SCH ×3 (05:27→18:15)
[2018-05-06] MEDS: VANCOMYCIN HCL 125 MG/2.5ML SOLN PO SCH ×3 (05:28→18:15)
[2018-05-06 07:14] LABS: BASO % 0.4 %; BASO ABS # 0.04 K/uL (0-0.2); HEMATOCRIT 35.4 % (37-47); HEMOGLOBIN 11.6 g/dL (12.0-16.0); IG# 0.15 K/uL (0.00-0.02); LYMPH % 18.9 %; LYMPH ABS # 2.12 K/uL (1.2-3.4); MEAN CELL VOLUME 89.2 fL (80-100); MEAN CORPUSCULAR HEMOGLOBIN 29.2 pg (25-34); MEAN CORPUSCULAR HGB CONC 32.8 g/dl (32-36); MEAN PLATELET VOLUME 9.7 fL (7.4-10.4); MONO % 11.4 %; MONO ABS # 1.28 K/uL (0.11-0.59); NEUT ABS # 7.63 K/uL (1.4-6.5); PLATELET COUNT 309 K/uL (130-400); RED CELL DISTRIBUTION WIDTH CV 14.7 % (11.5-14.5); RED CELL DISTRIBUTION WIDTH SD 48.1 fL (36.4-46.3); WHITE BLOOD COUNT 11.22 K/uL (4.8-10.8)
[2018-05-06 07:48] LABS: CALCIUM 8.5 mg/dl (8.5-10.1); CREATININE 0.73 mg/dl (0.60-1.20)
[2018-05-06] MEDS: VENLAFAXINE HCL XR 150 MG CAPXR PO SCH (07:59)
[2018-05-06] MEDS: CALCIUM CARBONATE 1250MG TAB PO SCH (08:00)
[2018-05-06] MEDS: PANTOprazole SOD 40 MG TAB PO SCH (08:00)
[2018-05-06] MEDS: THIAMINE HCL 100 MG TAB PO SCH (08:00)
[2018-05-06] MEDS: METOPROLOL TARTRATE 25 MG TAB PO SCH ×2 (08:00→19:51)
[2018-05-06] MEDS: LISINOPRIL 40 MG TAB PO SCH (08:00)
[2018-05-06] MEDS: POTASSIUM CHLORIDE 20 MEQ TABCR PO SCH (08:00)
[2018-05-06] MEDS: AMLODIPINE BESYLATE 5 MG TAB PO SCH (08:00)
[2018-05-06] MEDS: CEROVITE ADV FORMULA TAB PO SCH (08:00)
[2018-05-06] MEDS: ACETAMINOPHEN 325 MG TAB PO PRN ×2 (08:01→19:51)
[2018-05-06 08:24] VITALS: BP 176/73; PULSE 89; TEMP 36.6; O2SAT 90
[2018-05-06] MEDS: MAGNESIUM SULFATE 1GM / D5W 1 GM in PREMIXED IN D5W 100 ML IV SCH ×2 (11:01→13:20)
--- NOTE | 2018-05-06 13:58 | Progress Note ---
Medicine Progress Note Date & Time of Visit: May 06, 2018 at 13:56. Subjective seen resting in bed, comfortable states she feels improved today having less diarrhea no abdominal pain, nausea, chills no other symptoms Objective Last 8 Hrs Date Time Temp Pulse Resp B/P (MAP) Pulse Ox O2 Delivery O2 Flow Rate FiO2 05/06/18 11:13 Room Air 05/06/18 08:24 36.6 89 18 176/73 (107) 90 Physical Exam: General- oriented x 2, not in distress, speaking in sentences with no effort Head- atraumatic Eyes-anicteric Neck- no JVD Lungs- clear BS bilaterally Heart- regular rhythm; no murmur, normal rate Abdomen- normal bowel sounds, soft, no tenderness Extremities- no pretibial edema, no calf tenderness Neuro- alert, oriented x 2 decreased hearing no other focal neuro deficits Skin- warm & dry Laboratory Results: Last 24 Hours Test 05/06/18 07:01 White Blood Count 11.22 K/uL Red Blood Count 3.97 M/uL Hemoglobin 11.6 g/dL Hematocrit 35.4 % Mean Corpuscular Volume 89.2 fL Mean Corpuscular Hemoglobin 29.2 pg Mean Corpuscular Hemoglobin Concent 32.8 g/dl Platelet Count 309 K/uL Mean Platelet Volume 9.7 fL Neutrophils (%) (Auto) 68.0 % Lymphocytes (%) (Auto) 18.9 % Monocytes (%) (Auto) 11.4 % Eosinophils (%) (Auto) 0.0 % Basophils (%) (Auto) 0.4 % Neutrophils # (Auto) 7.63 K/uL Lymphocytes # (Auto) 2.12 K/uL Monocytes # (Auto) 1.28 K/uL Eosinophils # (Auto) 0.00 K/uL Basophils # (Auto) 0.04 K/uL RDW Standard Deviation 48.1 fL RDW Coefficient of Variation 14.7 % Immature Granulocyte % (Auto) 1.3 % Immature Granulocyte # (Auto) 0.15 K/uL Sodium Level 140 mmol/L Potassium Level 4.0 mmol/L Chloride Level 108 mmol/L Carbon Dioxide Level 26 mmol/L Anion Gap 6.0 mmol/L Blood Urea Nitrogen 7 mg/dl Creatinine 0.73 mg/dl Est Creatinine Clear Calc Drug Dose 50.5 ml/min Estimated GFR () 88.3 Estimated GFR (Non- 76.2 BUN/Creatinine Ratio 8.9 Random Glucose 86 mg/dl Calcium Level 8.5 mg/dl Magnesium Level 1.5 mg/dl Assessment & Plan 82 y/o female with history of HTN, CKD 3, CVA, PVD presenting with diarrhea. SEVERE C. DIFFICILE COLITIS, POSSIBLY RELATED FROM CLINDAMYCIN TAKEN FOR DENTAL INFECTION -WBC 16 K, lactic acid normal, BP stable -Patient received a course of clindamycin about 1 month ago for dental infection -Tested positive for C. difficile in the ER -Given renal dysfunction, patient started on Dificid 05/05 -Still having some diarrhea Positive for left lower quadrant tenderness today -Check CTs scan of the abdomen and pelvis -Change Dificid to vancomycin p.o. 4 times daily 10 more days Continue IV NSS 05/06 diarrhea improving continue Vanco PO Day 11/05 d/c IV NSS KEON ON CKD STAGE III -Patient presenting from [facility] with reports of diarrhea 1 week with bright red bleeding per rectum that began this morning -Presented with creatinine of 2.4 (baseline ~ 0.8-1.0) -Likely prerenal secondary to diarrhea in combination with TOREY inhibitor use - resolved BRIGHT RED BLEEDING PER RECTUM -Likely due to C. difficile colitis - Hg 11--> 12--> 11 monitor - hold ASA and Trental for now - monitor HYPERTENSION Amlodipine and Lisinopril discontinued continue Metoprolol PVD -resume ASA, Trental in light of hematochezia hold Statin in light of diarrhea HISTORY OF CVA - hold meds as noted above ALCOHOL USE - 4 ounces of liquor per day - placed on Alcohol Withdrawal Protocol, Gabapentin taper- renally dosed DVT PROPHYLAXIS -SCDs due to reports of bright red bleeding per rectum encouraged to ambulate CODE STATUS -Patient is a full code as per documentation sent from [facility]. DISPOSITION anticipate return to [facility] when medically stable, diarrhea resolves Current Inpatient Medications: Current Inpatient Medications Medications (Trade) Dose Ordered Sig/Monique Route Start Time Stop Time Status Last Admin Dose Admin Acetaminophen (Tylenol Tab) 650 mg Q4H PRN PO 05/01/18 14:15 05/31/18 14:14 05/06/18 08:01 650 MG Ondansetron HCl (Zofran Inj) 4 mg Q6H PRN IV 05/01/18 14:15 05/31/18 14:14 05/02/18 08:45 4 MG Metoprolol Tartrate (Lopressor Tab) 25 mg BID PO 05/01/18 20:00 05/31/18 20:59 05/06/18 08:00 25 MG Multivitamins/ Minerals (Multivitamin W/ Minerals Tab) 1 tab QAM PO 05/02/18 08:00 06/01/18 08:59 05/06/18 08:00 1 TAB Pantoprazole Sodium (Protonix Tab) 40 mg DAILY PO 05/02/18 08:00 06/01/18 08:59 05/06/18 08:00 40 MG Venlafaxine HCl (effeXOR EXTENDED REL CAP) 150 mg DAILY PO 05/02/18 08:00 06/01/18 08:59 05/06/18 07:59 150 MG Calcium Carbonate (oS-Philippe 500 TAB) 1,250 mg DAILY PO 05/02/18 08:00 06/01/18 08:59 05/06/18 08:00 1,250 MG Thiamine HCl (Vitamin B-1 Tab) 100 mg QAM PO 05/02/18 10:00 06/01/18 09:59 05/06/18 08:00 100 MG Lorazepam (Ativan Tab) 1 mg ONE PRN PO 05/02/18 09:15 Lorazepam (Ativan Tab) 0.5 mg Q8H PRN PO 05/02/18 09:15 06/01/18 09:14 05/05/18 20:27 0.5 MG Potassium Chloride (Klor-Con Tab) 40 meq QAM PO 05/04/18 08:00 06/03/18 07:59 05/06/18 08:00 40 MEQ Vancomycin HCl (Vancomycin Oral Soln) 125 mg Q6 PO 05/05/18 13:00 05/15/18 11:59 05/06/18 13:19 125 MG Raspberry (Raspberry Syrup 5ml Cup) 5 ml Q6 PO 05/05/18 13:00 05/19/18 12:59 05/06/18 13:19 5 ML Lisinopril (Zestril Tab) 40 mg DAILY PO 05/06/18 08:00 06/05/18 07:59 05/06/18 08:00 40 MG Amlodipine Besylate (Norvasc Tab) 5 mg QAM PO 05/06/18 08:00 06/05/18 07:59 05/06/18 08:00 5 MG Clonidine HCl (Catapres Tab) 0.1 mg Q6H PRN PO 05/06/18 14:00 06/05/18 13:59 UNV
[2018-05-06 15:56] VITALS: BP 143/76; PULSE 83; TEMP 36.9; O2SAT 97
[2018-05-06 19:50] VITALS: BP 163/70; PULSE 98
[2018-05-06] MEDS: LORAZEPAM 0.5 MG TAB PO PRN (19:51)
[2018-05-06 20:50] VITALS: BP 146/53; PULSE 70
[2018-05-06 23:15] VITALS: PULSE 69; TEMP 36.5; O2SAT 95
[2018-05-07] MEDS: RASPBERRY SYRUP 5 ML UDP PO SCH ×4 (00:08→18:34)
[2018-05-07] MEDS: VANCOMYCIN HCL 125 MG/2.5ML SOLN PO SCH ×4 (00:08→18:33)
[2018-05-07 07:53] VITALS: BP 180/72; PULSE 84; TEMP 36.7; O2SAT 96
[2018-05-07] MEDS: VENLAFAXINE HCL XR 150 MG CAPXR PO SCH (08:18)
[2018-05-07] MEDS: METOPROLOL TARTRATE 25 MG TAB PO SCH ×2 (08:18→21:29)
[2018-05-07] MEDS: POTASSIUM CHLORIDE 20 MEQ TABCR PO SCH (08:18)
[2018-05-07] MEDS: CEROVITE ADV FORMULA TAB PO SCH (08:19)
[2018-05-07] MEDS: AMLODIPINE BESYLATE 5 MG TAB PO SCH (08:19)
[2018-05-07] MEDS: CALCIUM CARBONATE 1250MG TAB PO SCH (08:19)
[2018-05-07] MEDS: LISINOPRIL 40 MG TAB PO SCH (08:19)
[2018-05-07] MEDS: THIAMINE HCL 100 MG TAB PO SCH (08:19)
[2018-05-07] MEDS: PANTOprazole SOD 40 MG TAB PO SCH (08:19)
[2018-05-07] MEDS: CLONIDINE HCL 0.1 MG TAB PO PRN (08:20)
[2018-05-07] MEDS: ACETAMINOPHEN 325 MG TAB PO PRN ×2 (08:20→18:46)
[2018-05-07 08:29] LABS: CALCIUM 8.4 mg/dl (8.5-10.1); CREATININE 0.69 mg/dl (0.60-1.20); POTASSIUM 4.1 mmol/L (3.5-5.1)
[2018-05-07 12:19] VITALS: BP 150/74; PULSE 77
--- NOTE | 2018-05-07 12:36 | Progress Note ---
Medicine Progress Note Date & Time of Visit: May 07, 2018 at 12:31. Subjective seen resting in bed states she does not feel that well today has some lower abdomen discomfort still having loose BMs, 7 yesterday, 5 so far today denies chills, nausea no other symptoms Objective Last 8 Hrs Date Time Temp Pulse Resp B/P (MAP) Pulse Ox O2 Delivery O2 Flow Rate FiO2 05/07/18 12:19 77 150/74 (99) 05/07/18 10:17 Room Air 05/07/18 07:53 36.7 84 16 180/72 (108) 96 Room Air Physical Exam: General- oriented x 2, not in distress, speaking in sentences with no effort Eyes-anicteric Neck- no JVD Lungs- clear BS bilaterally, no rales/wheezes Heart- regular rhythm; no murmur, normal rate Abdomen- normal bowel sounds, soft, non distended, moderate LLQ tenderness Extremities- no pretibial edema, no calf tenderness Neuro- alert, oriented x 2 decreased hearing no other focal neuro deficits Skin- warm & dry Laboratory Results: Last 24 Hours Test 05/07/18 07:47 05/07/18 12:21 Sodium Level 139 mmol/L Potassium Level 4.1 mmol/L Chloride Level 106 mmol/L Carbon Dioxide Level 26 mmol/L Anion Gap 7.0 mmol/L Blood Urea Nitrogen 7 mg/dl Creatinine 0.69 mg/dl Est Creatinine Clear Calc Drug Dose 53.4 ml/min Estimated GFR () 93.3 Estimated GFR (Non- 80.5 BUN/Creatinine Ratio 10.2 Random Glucose 93 mg/dl Calcium Level 8.4 mg/dl Magnesium Level 1.6 mg/dl Assessment & Plan 82 y/o female with history of HTN, CKD 3, CVA, PVD presenting with diarrhea. SEVERE C. DIFFICILE COLITIS, POSSIBLY RELATED FROM CLINDAMYCIN TAKEN FOR DENTAL INFECTION -WBC 16 K, lactic acid normal, BP stable -Patient received a course of clindamycin about 1 month ago for dental infection -Tested positive for C. difficile in the ER -Given renal dysfunction, patient started on Dificid 05/05 -Still having some diarrhea Positive for left lower quadrant tenderness today -Check CTs scan of the abdomen and pelvis -Change Dificid to vancomycin p.o. 4 times daily 10 more days Continue IV NSS 05/06 diarrhea improving continue Vanco PO Day 2/10 d/c IV NSS 05/07 still having loose , frequent BMs completed 4 day s of Fidaxomicin, then transitioned to Vancomycin QID- Day 3 now will add IV Flagyl q8h continue IV fluids GI consulted KEON ON CKD STAGE III -Patient presenting from [facility] with reports of diarrhea 1 week with bright red bleeding per rectum that began this morning -Presented with creatinine of 2.4 (baseline ~ 0.8-1.0) -Likely prerenal secondary to diarrhea in combination with TOREY inhibitor use - resolved BRIGHT RED BLEEDING PER RECTUM -Likely due to C. difficile colitis - Hg 11--> 12--> 11 monitor - hold ASA and Trental for now - monitor HYPERTENSION Amlodipine and Lisinopril continued continue Metoprolol - monitor PRN Clonidine ordered PVD -holding ASA, Trental in light of hematochezia, severe C diff hold Statin in light of diarrhea HISTORY OF CVA - hold meds as noted above ALCOHOL USE - 4 ounces of liquor per day - placed on Alcohol Withdrawal Protocol, Gabapentin taper- renally dosed DVT PROPHYLAXIS -SCDs due to reports of bright red bleeding per rectum encouraged to ambulate CODE STATUS -Patient is a full code as per documentation sent from [facility]. DISPOSITION anticipate return to [facility] when medically stable, diarrhea resolves Current Inpatient Medications: Current Inpatient Medications Medications (Trade) Dose Ordered Sig/Monique Route Start Time Stop Time Status Last Admin Dose Admin Acetaminophen (Tylenol Tab) 650 mg Q4H PRN PO 05/01/18 14:15 05/31/18 14:14 05/07/18 08:20 650 MG Ondansetron HCl (Zofran Inj) 4 mg Q6H PRN IV 05/01/18 14:15 05/31/18 14:14 05/02/18 08:45 4 MG Metoprolol Tartrate (Lopressor Tab) 25 mg BID PO 05/01/18 20:00 05/31/18 20:59 05/07/18 08:18 25 MG Multivitamins/ Minerals (Multivitamin W/ Minerals Tab) 1 tab QAM PO 05/02/18 08:00 06/01/18 08:59 05/07/18 08:19 1 TAB Pantoprazole Sodium (Protonix Tab) 40 mg DAILY PO 05/02/18 08:00 06/01/18 08:59 05/07/18 08:19 40 MG Venlafaxine HCl (effeXOR EXTENDED REL CAP) 150 mg DAILY PO 05/02/18 08:00 06/01/18 08:59 05/07/18 08:18 150 MG Calcium Carbonate (oS-Philippe 500 TAB) 1,250 mg DAILY PO 05/02/18 08:00 06/01/18 08:59 05/07/18 08:19 1,250 MG Thiamine HCl (Vitamin B-1 Tab) 100 mg QAM PO 05/02/18 10:00 06/01/18 09:59 05/07/18 08:19 100 MG Lorazepam (Ativan Tab) 1 mg ONE PRN PO 05/02/18 09:15 Lorazepam (Ativan Tab) 0.5 mg Q8H PRN PO 05/02/18 09:15 06/01/18 09:14 05/06/18 19:51 0.5 MG Potassium Chloride (Klor-Con Tab) 40 meq QAM PO 05/04/18 08:00 06/03/18 07:59 05/07/18 08:18 40 MEQ Vancomycin HCl (Vancomycin Oral Soln) 125 mg Q6 PO 05/05/18 13:00 05/15/18 11:59 05/07/18 12:21 125 MG Raspberry (Raspberry Syrup 5ml Cup) 5 ml Q6 PO 05/05/18 13:00 05/19/18 12:59 05/07/18 12:21 5 ML Lisinopril (Zestril Tab) 40 mg DAILY PO 05/06/18 08:00 06/05/18 07:59 05/07/18 08:19 40 MG Amlodipine Besylate (Norvasc Tab) 5 mg QAM PO 05/06/18 08:00 06/05/18 07:59 05/07/18 08:19 5 MG Clonidine HCl (Catapres Tab) 0.1 mg Q6H PRN PO 05/06/18 14:00 06/05/18 13:59 05/07/18 08:20 0.1 MG Magnesium Sulfate 1 gm/Prmx 200 ml @ 200 mls/hr Q1H IV 05/07/18 12:30 05/07/18 14:29 Metronidazole 500 mg/Prmx 100 ml @ 100 mls/hr Q8H IV 05/07/18 14:00 05/17/18 13:59 Sodium Chloride 1,000 ml @ 80 mls/hr [id number] IV 05/07/18 12:30 06/06/18 12:29
[2018-05-07] MEDS: MAGNESIUM SULFATE 1GM / D5W 1 GM in PREMIXED IN D5W 100 ML IV SCH ×2 (14:35→16:24)
[2018-05-07] MEDS: SODIUM CHLORIDE 0.9% 1000ML 1,000 ML IV SCH (14:36)
[2018-05-07] MEDS: METRONIDAZOLE / NSS 500 MG in PREMIXED NSS 100 ML IV SCH ×2 (14:37→21:30)
[2018-05-07] MEDS: POT PHOSPHATE MONOBASIC W/ SOD TAB PO SCH ×3 (18:34→21:29)
[2018-05-07] MEDS: LORAZEPAM 0.5 MG TAB PO PRN (18:46)
[2018-05-07 21:29] VITALS: BP 171/68; PULSE 98
[2018-05-07 23:06] VITALS: BP 152/81; PULSE 95; TEMP 36.4; O2SAT 95
[2018-05-08] VITALS (7 sets, daily range): BP systolic 149–180; BP diastolic 64–71; PULSE 74–90; TEMP 36.4–36.8; O2SAT 92–97
[2018-05-08] MEDS: VANCOMYCIN HCL 125 MG/2.5ML SOLN PO SCH ×4 (00:11→17:02)
[2018-05-08] MEDS: RASPBERRY SYRUP 5 ML UDP PO SCH ×4 (00:12→17:02)
[2018-05-08] MEDS ORDERED: MICONAZOLE NITRATE POWDER 43 GM EXT PRN (03:45)
[2018-05-08] MEDS: SODIUM CHLORIDE 0.9% 1000ML 1,000 ML IV SCH (05:36)
[2018-05-08] MEDS: METRONIDAZOLE / NSS 500 MG in PREMIXED NSS 100 ML IV SCH ×4 (05:58→21:54)
[2018-05-08] MEDS: ACETAMINOPHEN 325 MG TAB PO PRN ×2 (05:58→21:01)
[2018-05-08 06:50] LABS: BASO % 0.4 %; BASO ABS # 0.04 K/uL (0-0.2); HEMATOCRIT 33.3 % (37-47); HEMOGLOBIN 10.9 g/dL (12.0-16.0); LYMPH % 24.6 %; LYMPH ABS # 2.46 K/uL (1.2-3.4); MEAN CELL VOLUME 89.3 fL (80-100); MEAN CORPUSCULAR HEMOGLOBIN 29.2 pg (25-34); MEAN CORPUSCULAR HGB CONC 32.7 g/dl (32-36); MEAN PLATELET VOLUME 9.9 fL (7.4-10.4); MONO % 10.7 %; MONO ABS # 1.07 K/uL (0.11-0.59); NEUT % 63.3 %; NEUT ABS # 6.35 K/uL (1.4-6.5); PLATELET COUNT 360 K/uL (130-400); RED CELL DISTRIBUTION WIDTH CV 14.8 % (11.5-14.5); RED CELL DISTRIBUTION WIDTH SD 48.1 fL (36.4-46.3); WHITE BLOOD COUNT 10.02 K/uL (4.8-10.8)
[2018-05-08 07:20] LABS: CALCIUM 8.1 mg/dl (8.5-10.1); CREATININE 0.74 mg/dl (0.60-1.20); POTASSIUM 4.1 mmol/L (3.5-5.1)
[2018-05-08] MEDS: METOPROLOL TARTRATE 25 MG TAB PO SCH ×2 (08:31→21:00)
[2018-05-08] MEDS: POT PHOSPHATE MONOBASIC W/ SOD TAB PO SCH ×4 (08:31→21:01)
[2018-05-08] MEDS: VENLAFAXINE HCL XR 150 MG CAPXR PO SCH (08:31)
[2018-05-08] MEDS: CEROVITE ADV FORMULA TAB PO SCH (08:31)
[2018-05-08] MEDS: PANTOprazole SOD 40 MG TAB PO SCH (08:31)
[2018-05-08] MEDS: THIAMINE HCL 100 MG TAB PO SCH (08:32)
[2018-05-08] MEDS: LISINOPRIL 40 MG TAB PO SCH (08:32)
[2018-05-08] MEDS: CALCIUM CARBONATE 1250MG TAB PO SCH (08:32)
[2018-05-08] MEDS: POTASSIUM CHLORIDE 20 MEQ TABCR PO SCH (08:32)
[2018-05-08] MEDS: AMLODIPINE BESYLATE 5 MG TAB PO SCH (08:33)
[2018-05-08] MEDS ORDERED: TAP WATER ENEMA PR ONE (11:15)
--- NOTE | 2018-05-08 11:18 | Gastrointestinal Consultation ---
Gastrointestinal Consultation Date of Consultation: May 08, 2018 Attending Physician: Red Jensen Consulting Physician: Nicolle Lynn MD Reason for Consultation: Cdiff with persistent diarrhea History of Present Illness Patient is an 82 year old female resident of [facility], prescribed Clindamycin for a dental infection early March. She was admitted 05/01/18 with a one week hx of diarrhea, with generalized abdominal cramping, and BRB starting the day of admission. Stool studies were positive for Cdiff. She was given Dificid due to renal issues, and was on this for 4 days, then changed to Vancomycin on 05/05/18, due to persistent diarrhea. Flagyl IV was added yesterday. She continues to be incontinent of loose to liquid stools, having 9 BMs yesterday and 5 thus far today. She does continue with low central abdominal pain, stating, "it feels like I have to go!" She is a poor historian otherwise, and is unable to offer much more of a history. No record of prior colonoscopy, but patient feels that she has had one, "many years ago." Labs show an initial elevated WBC but this has normalized. Hgb 10.9 today. CTAP 05/05/18 - IMPRESSION: 1. Stable to slight interval worsening of colitis most prominently involving the descending colon through the rectum with lesser involvement of the transverse and right colon. No bowel obstruction. No perforation. 2. Indeterminate lobe millimeters left adrenal nodule. 3. Increased bibasilar passive atelectasis with small to moderate bilateral pleural effusions. 4. Findings suggest volume overload. Past Medical/Surgical History Medical Problems: (1) Acute renal failure Status: Acute (2) Anemia Status: Acute (3) Dehydration Status: Acute (4) Diarrhea Status: Acute Past Medical History: CKD, CVA, TIA, PVD, Anxiety Past Surgical History: Carotid endarterectomy - bilateral, Tonsillectomy/adenoidectomy, cholecystectomy Family History No pertinent family history Social History Smoking Status: Never Smoker Alcohol Use: heavy Drug Use: none Marital Status: Housing Status: long term Occupation Status: retired Allergies Coded Allergies: Amoxicillin (Verified Allergy, Unknown, BETA-LACTAMS, 05/01/18) Clavulanic Acid (Verified Allergy, Unknown, BETA-LACTAMS, 05/01/18) Codeine (Verified Allergy, Unknown, 05/01/18) Hydrocodone (Verified Allergy, Unknown, 05/01/18) Morphine (Verified Allergy, Unknown, 05/01/18) Current Medications Home Meds and Scripts Medications Dose Route/Sig Max Daily Dose Days Date Category Dose Instructions Zofran (Ondansetron HCl) 4 Mg Tab 4 Mg PO Q6 PRN 05/01/18 Reported Ativan (Lorazepam) 0.5 Mg Tab 0.5 Mg PO Q6H PRN 05/01/18 Reported Imodium (Loperamide HCl) 2 Mg Cap 2 Mg PO UD PRN 05/01/18 Reported 1 CAPSULE AFTER EACH LOOSE BOWEL MOVEMENT. NO MORE THAN 8 CAPSULES PER DAY. Imodium (Loperamide HCl) 2 Mg Cap 4 Mg PO UD PRN 05/01/18 Reported Compro (Prochlorperazine) 25 Mg Sup 25 Mg DE Q12 PRN 05/01/18 Reported Antacid (Calcium Carbonate (Antacid)) 500 Mg Chw 500 Mg PO TID PRN 05/01/18 Reported Tylenol (Acetaminophen) 325 Mg Tab 650 Mg PO Q3-4HRS PRN 05/01/18 Reported MAX 3 GM APAP IN 24 HOURS Vitamin D 89750 Unit (Ergocalciferol) 50,000 Unit Cap 50,000 Unit PO MONTHLY 05/01/18 Reported ON THE 7TH OF EVERY MONTH Effexor Extended Rel (Venlafaxine Hcl) 150 Mg Cap 150 Mg PO DAILY 05/01/18 Reported Therems M (Multiple Vitamins W/ Minerals) 1 Tab Tab 1 Tab PO QAM 05/01/18 Reported WITH BREAKFAST Crestor (Rosuvastatin Calcium) 20 Mg Tab 20 Mg PO DAILY 05/01/18 Reported Pravastatin Sodium 80 Mg Tab 80 Mg PO QPM 05/01/18 Reported DAILY AT 1700 Pentoxifylline ER (Pentoxifylline) 400 Mg Tabcr 400 Mg PO TID 05/01/18 Reported Protonix (Pantoprazole Sodium) 40 Mg Tab 40 Mg PO DAILY 05/01/18 Reported Lopressor (Metoprolol Tartrate) 25 Mg Tab 25 Mg PO BID 05/01/18 Reported Zestril (Lisinopril) 40 Mg Tab 40 Mg PO DAILY 05/01/18 Reported Neurontin (Gabapentin) 300 Mg Cap 300 Mg PO DAILY 05/01/18 Reported Debrox (Carbamide Peroxide (Otic)) 6.5 % [place] 5 Drops OT BID 05/01/18 Reported FILL EAR CANAL AND INSERT COTTON PLUG. REMOVE PLUF AFTER 15 -30 MINUTES FOR EAR WAX. Aspirin Ec (Aspirin) 81 Mg Tab 81 Mg PO DAILY 05/01/18 Reported WITH BREAKFAST Calcium Carbonate (Calcium Carbonate (Antacid)) 648 Mg Tab 1,296 Mg PO DAILY 05/01/18 Reported TWO 648 MG TABLETS Norvasc (Amlodipine Besylate) 5 Mg Tab 5 Mg PO DAILY 05/01/18 Reported Physical Exam Date Time Temp Pulse Resp B/P (MAP) Pulse Ox O2 Delivery O2 Flow Rate FiO2 05/08/18 07:37 36.8 86 20 170/66 (100) 97 Room Air 05/08/18 00:00 Room Air 05/07/18 23:06 36.4 95 18 152/81 (104) 95 Room Air 05/07/18 21:29 98 171/68 (102) 05/07/18 16:20 Room Air 05/07/18 12:19 77 150/74 (99) General Appearance: no apparent distress Eyes: normal inspection ENT: + pertinent finding (significant hearing loss) Neck: supple Respiratory/Chest: lungs clear, normal breath sounds Cardiovascular: regular rate, rhythm Abdomen: normal bowel sounds, soft, + tenderness (diffusely) Extremities: no pedal edema Neurologic/Psych: alert, normal mood/affect Skin: no jaundice, warm/dry Laboratory Results Last 24 Hours Test 05/07/18 12:21 05/08/18 06:17 Phosphorus Level 1.8 mg/dl White Blood Count 10.02 K/uL Red Blood Count 3.73 M/uL Hemoglobin 10.9 g/dL Hematocrit 33.3 % Mean Corpuscular Volume 89.3 fL Mean Corpuscular Hemoglobin 29.2 pg Mean Corpuscular Hemoglobin Concent 32.7 g/dl Platelet Count 360 K/uL Mean Platelet Volume 9.9 fL Neutrophils (%) (Auto) 63.3 % Lymphocytes (%) (Auto) 24.6 % Monocytes (%) (Auto) 10.7 % Eosinophils (%) (Auto) 0.0 % Basophils (%) (Auto) 0.4 % Neutrophils # (Auto) 6.35 K/uL Lymphocytes # (Auto) 2.46 K/uL Monocytes # (Auto) 1.07 K/uL Eosinophils # (Auto) 0.00 K/uL Basophils # (Auto) 0.04 K/uL RDW Standard Deviation 48.1 fL RDW Coefficient of Variation 14.8 % Immature Granulocyte % (Auto) 1.0 % Immature Granulocyte # (Auto) 0.10 K/uL Sodium Level 138 mmol/L Potassium Level 4.1 mmol/L Chloride Level 107 mmol/L Carbon Dioxide Level 24 mmol/L Anion Gap 7.0 mmol/L Blood Urea Nitrogen 7 mg/dl Creatinine 0.74 mg/dl Est Creatinine Clear Calc Drug Dose 49.8 ml/min Estimated GFR () 86.8 Estimated GFR (Non- 74.9 BUN/Creatinine Ratio 9.3 Random Glucose 103 mg/dl Calcium Level 8.1 mg/dl Magnesium Level 1.7 mg/dl Impression Patient is an 82 year old female admitted with bloody diarrhea - stool positive for cdiff. Initially on Dificid, but changed to vancomycin after 4 days due to persistent diarrhea. Flagyl IV added yesterday. Patient continues with fecal incontinence and we have been asked to see her for further evaluation. Plan Will give an enema now, and plan a flex sig later today. She has been made NPO. Monitor electrolytes, correct as needed. Continue vanco and flagyl as current. If flex sig is negative, would consider adding cholestyramine BID. I performed a history and physical examination of the patient, including specifically no abdominal tenderness. I have discussed the patient's management with Angelica Mccormick. Please refer to the [employer] OPERATOR's note for the documented findings and plan of care. Diarrhea slightly and slowly improving after starting PO Vanc. Will arrange Flex sig today for Bx and check for other etiologies. Recall if needed.
[2018-05-08] MEDS: MAGNESIUM SULFATE 1GM / D5W 100 ML IV SCH ×2 (12:18→13:20)
[2018-05-08] MEDS: CLONIDINE HCL 0.1 MG TAB PO PRN (12:24)
[2018-05-08] MEDS: LORAZEPAM 0.5 MG TAB PO PRN ×2 (12:25→21:02)
--- NOTE | 2018-05-08 16:03 | History & Physical Bridge Note ---
H&P Re-Evaluation Bridge Note: I have examined the patient, reviewed the History & Physical and in the interval since the performance of the History & Physical I have noted the following changes of clinical significance: No changes noted
--- NOTE | 2018-05-08 16:17 | GI REPORT ---
Patient Name: Jo Hernandez Procedure Date: 05/08/2018 4:06 PM Date of : 1935 Admit Type: Inpatient Age: 82 Gender: Female Attending MD: Nicolle Lynn MD Procedure: Flexible Sigmoidoscopy Providers: Nicolle Lynn MD Referring MD: Red Rajan Indications: Diarrhea Medicines: None Complications: No immediate complications. Estimated Blood Loss: Estimated blood loss: none. Procedure: Pre-Anesthesia Assessment: - Prior to the procedure, a History and Physical was performed, and patient medications and allergies were reviewed. The patient is competent. The risks and benefits of the procedure and the sedation options and risks were discussed with the patient. All questions were answered and informed consent was obtained. Patient identification and proposed procedure were verified by the physician and the nurse in the procedure room. Mental Status Examination: alert and oriented. Airway Examination: normal oropharyngeal airway and neck mobility. Respiratory Examination: clear to auscultation. CV Examination: normal. After reviewing the risks and benefits, the patient was deemed in satisfactory condition to undergo the procedure. The anesthesia plan was to use no sedation or anesthesia. Immediately prior to administration of medications, the patient was re-assessed for adequacy to receive sedatives. The heart rate, respiratory rate, oxygen saturations, blood pressure, adequacy of pulmonary ventilation, and response to care were monitored throughout the procedure. The physical status of the patient was re-assessed after the procedure. After obtaining informed consent, the endoscope was passed under direct vision. Throughout the procedure, the patient's blood pressure, pulse, and oxygen saturations were monitored continuously. The scope was introduced through the anus and advanced to the sigmoid colon. The flexible sigmoidoscopy was accomplished without difficulty. The patient tolerated the procedure well. The quality of the bowel preparation was fair. The flexible sigmoidoscopy was accomplished without difficulty. The patient tolerated the procedure well. Findings: The perianal and digital rectal examinations were normal. The area from rectum to sigmoid colon appeared normal. Biopsies were taken with a cold forceps for histology. Verification of patient identification for the specimen was done by the physician and nurse using the patient's name and date. There is no endoscopic evidence of pseudomembranous changes in the entire colon. Impression: - Preparation of the colon was fair. - The rectum to sigmoid colon is normal. Biopsied. No pseudomembranes seen. Recommendation: - Resume regular diet. - Continue Flagyl and PO Vanc. - PRN antidiarrheal. - Recall GI if needed. Nicolle Lynn MD 05/08/2018 4:16:55 PM This report has been signed electronically. Note Initiated On: 05/08/2018 4:06 PM Number of Addenda: 0 I attest to the content of the Intraoperative Record and orders documented therein, exceptions below {[id number]}
[2018-05-08] MEDS ORDERED: AMLODIPINE BESYLATE 5 MG TAB PO ONE (19:15)
[2018-05-09] MEDS ORDERED: NURSING VERBAL MED ORDER ONE (00:15)
[2018-05-09 01:02] VITALS: BP 147/67
[2018-05-09] MEDS ORDERED: NURSING DECISION MEDICATION ORDER SCH (04:30)
[2018-05-09] MEDS ORDERED: MICONAZOLE NITRATE POWDER 43 GM EXT PRN (04:45)
[2018-05-09] MEDS: METRONIDAZOLE / NSS 500 MG in PREMIXED NSS 100 ML IV SCH ×3 (06:20→20:08)
[2018-05-09] MEDS: VANCOMYCIN HCL 125 MG/2.5ML SOLN PO SCH ×4 (06:21→17:48)
[2018-05-09] MEDS: RASPBERRY SYRUP 5 ML UDP PO SCH ×4 (06:21→17:48)
[2018-05-09 06:47] LABS: CREATININE 0.73 mg/dl (0.60-1.20); POTASSIUM 4.2 mmol/L (3.5-5.1)
[2018-05-09] MEDS ORDERED: MAGNESIUM SULFATE 1GM / D5W 100 ML IV STA (07:32)
[2018-05-09 07:43] VITALS: BP 133/67; PULSE 70; TEMP 36.7; O2SAT 95
[2018-05-09] MEDS: POT PHOSPHATE MONOBASIC W/ SOD TAB PO SCH ×4 (08:14→20:08)
[2018-05-09] MEDS: AMLODIPINE BESYLATE 5 MG TAB PO SCH (08:14)
[2018-05-09] MEDS: METOPROLOL TARTRATE 25 MG TAB PO SCH ×2 (08:15→20:08)
[2018-05-09] MEDS: GABAPENTIN 300 MG CAP PO SCH (08:15)
[2018-05-09] MEDS: LISINOPRIL 40 MG TAB PO SCH (08:15)
[2018-05-09] MEDS: CALCIUM CARBONATE 1250MG TAB PO SCH (08:15)
[2018-05-09] MEDS: VENLAFAXINE HCL XR 150 MG CAPXR PO SCH (08:15)
[2018-05-09] MEDS: THIAMINE HCL 100 MG TAB PO SCH (08:15)
[2018-05-09] MEDS: PANTOprazole SOD 40 MG TAB PO SCH (08:15)
[2018-05-09] MEDS: CEROVITE ADV FORMULA TAB PO SCH (08:15)
[2018-05-09] MEDS: POTASSIUM CHLORIDE 20 MEQ TABCR PO SCH (08:16)
[2018-05-09] MEDS: SODIUM CHLORIDE 0.9% 1000ML 1,000 ML IV SCH ×2 (12:33)
[2018-05-09] MEDS ORDERED: LOPERAMIDE HCL 2 MG CAP PO PRN (14:15)
[2018-05-09] MEDS ORDERED: LOPERAMIDE HCL 2 MG CAP PO ONE (14:30)
--- NOTE | 2018-05-09 14:33 | Gastroenterology Progress Note ---
Progress Note Date of Service: May 09, 2018 Subjective Pt evaluation today including: conversation w/ patient, physical exam, chart review, lab review, review of studies Flex sig yesterday without signs of active Cdiff infection/pseudomembranes. Biopsy pending. Patient continues with multiple episodes of fecal incontinence with non-bloody, liquid stool. Denies abdominal pain, n/v. Tolerating diet. Review of Systems Constitutional: No fever, No chills Eyes: No worsening of vision, No eye pain ENT: + hearing loss Respiratory: No cough, No shortness of breath Cardiac: No chest pain Abdomen: + see HPI Musculoskeletal: + problem reported (leg pain) Female : No dysuria Neuro: + memory loss Psych: No problem reported Heme: No abnormal bleeding/bruising Endo: No excessive thirst, No excessive urination Skin: No rash, No itch Medications Current Inpatient Medications Medications (Trade) Dose Ordered Sig/Monique Route Start Time Stop Time Status Last Admin Dose Admin Acetaminophen (Tylenol Tab) 650 mg Q4H PRN PO 05/01/18 14:15 05/31/18 14:14 05/08/18 21:01 650 MG Ondansetron HCl (Zofran Inj) 4 mg Q6H PRN IV 05/01/18 14:15 05/31/18 14:14 05/02/18 08:45 4 MG Metoprolol Tartrate (Lopressor Tab) 25 mg BID PO 05/01/18 20:00 05/31/18 20:59 05/09/18 08:15 25 MG Multivitamins/ Minerals (Multivitamin W/ Minerals Tab) 1 tab QAM PO 05/02/18 08:00 06/01/18 08:59 05/09/18 08:15 1 TAB Pantoprazole Sodium (Protonix Tab) 40 mg DAILY PO 05/02/18 08:00 06/01/18 08:59 05/09/18 08:15 40 MG Venlafaxine HCl (effeXOR EXTENDED REL CAP) 150 mg DAILY PO 05/02/18 08:00 06/01/18 08:59 05/09/18 08:15 150 MG Calcium Carbonate (oS-Philippe 500 TAB) 1,250 mg DAILY PO 05/02/18 08:00 06/01/18 08:59 05/09/18 08:15 1,250 MG Thiamine HCl (Vitamin B-1 Tab) 100 mg QAM PO 05/02/18 10:00 06/01/18 09:59 05/09/18 08:15 100 MG Lorazepam (Ativan Tab) 1 mg ONE PRN PO 05/02/18 09:15 Lorazepam (Ativan Tab) 0.5 mg Q8H PRN PO 05/02/18 09:15 06/01/18 09:14 05/08/18 21:02 0.5 MG Potassium Chloride (Klor-Con Tab) 40 meq QAM PO 05/04/18 08:00 06/03/18 07:59 05/09/18 08:16 40 MEQ Vancomycin HCl (Vancomycin Oral Soln) 125 mg Q6 PO 05/05/18 13:00 05/15/18 11:59 05/09/18 12:34 125 MG Raspberry (Raspberry Syrup 5ml Cup) 5 ml Q6 PO 05/05/18 13:00 05/19/18 12:59 05/09/18 12:34 5 ML Lisinopril (Zestril Tab) 40 mg DAILY PO 05/06/18 08:00 06/05/18 07:59 05/09/18 08:15 40 MG Amlodipine Besylate (Norvasc Tab) 5 mg QAM PO 05/06/18 08:00 06/05/18 07:59 05/09/18 08:14 5 MG Clonidine HCl (Catapres Tab) 0.1 mg Q6H PRN PO 05/06/18 14:00 06/05/18 13:59 05/08/18 12:24 0.1 MG Metronidazole 500 mg/Prmx 100 ml @ 100 mls/hr Q8H IV 05/07/18 14:00 05/17/18 13:59 05/09/18 14:06 100 MLS/HR Sodium Chloride 1,000 ml @ 80 mls/hr [id number] IV 05/07/18 12:30 06/06/18 12:29 05/09/18 12:33 80 MLS/HR Potassium/ Phosphorus/Sodium (Phospha 250 Neutral 155-852-130 Mg) 1 tab QID PO 05/07/18 17:00 06/06/18 16:59 05/09/18 12:34 1 TAB Miconazole Nitrate (Desenex Powder) 1 appln PRN PRN EXT 05/08/18 03:45 06/07/18 03:44 Gabapentin (Neurontin Cap) 300 mg DAILY PO 05/09/18 08:00 06/08/18 07:59 05/09/18 08:15 300 MG Cholestyramine Resin (Questran Powder Light) 4 gm BID@10,22 PO 05/09/18 22:00 06/08/18 21:59 Loperamide HCl (Imodium Cap) 2 mg UD PRN PO 05/09/18 14:15 06/08/18 14:14 Loperamide HCl (Imodium Cap) 4 mg NOW ONCE PO 05/09/18 14:30 05/09/18 14:31 Objective Vital Signs Date Time Temp Pulse Resp B/P (MAP) Pulse Ox O2 Delivery O2 Flow Rate FiO2 05/09/18 08:00 Room Air 05/09/18 07:43 36.7 70 16 133/67 (89) 95 Room Air 05/09/18 01:02 147/67 (93) 05/08/18 23:04 36.4 90 18 168/66 (100) 94 Room Air 05/08/18 20:49 74 165/67 (99) 92 Room Air 05/08/18 20:00 Room Air 05/08/18 16:10 79 20 177/79 (111) 95 Room Air 05/08/18 16:00 Room Air 05/08/18 16:00 36.6 84 20 149/70 (96) 96 Room Air 05/08/18 15:50 36.7 86 20 178/67 (104) 95 Room Air Physical Exam General Appearance: no apparent distress Eyes: normal inspection ENT: + pertinent finding (severe hearing loss) Neck: supple Respiratory/Chest: lungs clear, normal breath sounds, no respiratory distress Cardiovascular: regular rate, rhythm Abdomen: non tender, soft, no organomegaly, + abnormal bowel sounds ( hyperactive) Extremities: no pedal edema Neurologic/Psych: alert Skin: warm/dry, no rash Laboratory Results Last 24 Hours Test 05/09/18 05:58 Sodium Level 138 mmol/L Potassium Level 4.2 mmol/L Chloride Level 106 mmol/L Carbon Dioxide Level 25 mmol/L Anion Gap 7.0 mmol/L Blood Urea Nitrogen 7 mg/dl Creatinine 0.73 mg/dl Est Creatinine Clear Calc Drug Dose 50.5 ml/min Estimated GFR () 88.3 Estimated GFR (Non- 76.2 BUN/Creatinine Ratio 9.7 Random Glucose 92 mg/dl Calcium Level 8.0 mg/dl Magnesium Level 1.7 mg/dl Assessment and Plan 82 year old female with cdiff diarrhea - on oral vanco and IV flagyl, s/p flex sig yesterday without pertinent findings (no pseudomembranes), biopsy pending -Would continue vanco and flagyl as current. -Add colestipol BID -Add Imodium - 2 tablets now, then one tablet after each diarrheal stool as needed, up to 8mg -GI will sign off. Please call with questions or if symptoms do not improve. I performed a history and physical examination of the patient, including specifically soft, nontender abdomen, I have discussed the patient's management with Angelica Mccormick PA-C. Please refer to the PA's note for the documented findings and plan of care.
--- NOTE | 2018-05-09 15:06 | Progress Note ---
Internal Med Progress Note Date of Service: May 09, 2018. Provider Documentation: SUBJECTIVE: Seen and examined at bedside Still had multiple episodes of non bloody diarrhea Denies abdominal pain, nausea, chest pain, SOB, dizziness No other complaints OBJECTIVE: Vital Signs-as noted below Physical Exam: General Appearance:Moderately built and nourished, no apparent distress Head: normocephalic, Atraumatic Eyes: normal inspection, EOMI, PERRL Neck: supple, Trachea midline Respiratory/Chest: Normal breath sounds, Basal Crackles Cardiovascular: S1, S2, No murmur Abdomen/GI:Soft, Non tender, Bowel sounds present Extremities/Musculoskelatal:normal inspection, no edema Neurologic/Psych:AAOX3, grossly no focal neurological deficits Skin: normal color, warm Lab data as noted below. ASSESSMENT & PLAN: Patient is an 82 yr female with PMH HTN, CKD III, CVA, PVD presented with diarrhea. Severe C.Diff Colitis Likely related to recent Clindamycin use for Dental Infection S/P flexible sigmoidoscopy: Normal, no pseudomembranes Pathology: Pending Continue Vancomycin, Flagyl Appreciate GI Input Continue colestipol BID, Imodium PRN IV fluids Leukocytosis resolved Stool For C.diff Positive Monitor Electrolytes, renal function KEON on CKD STAGE III Likely Prerenal and Lisinopril Cr: 2.4>>.1.31.>>>0.73 resolved Lisinopril resumed Bright Red Blood per Rectum Likely due to C. difficile colitis Hb stable monitor hold ASA and Trental for now HTN: Continue Amlodipine, Lisinopril, Metoprolol - monitor PRN Clonidine PVD hold ASA, Trental 2/2 hematochezia, severe C diff H/O CVA hold meds as above Alcohol Use Alcohol Withdrawal Protocol DVT Px: SCDs Re:bright red bleeding per rectum Code Status: full code Disposition: Expect to return to [facility] when medically stable Vital Signs: Date Time Temp Pulse Resp B/P (MAP) Pulse Ox O2 Delivery O2 Flow Rate FiO2 05/09/18 08:00 Room Air 05/09/18 07:43 36.7 70 16 133/67 (89) 95 Room Air 05/09/18 01:02 147/67 (93) 05/08/18 23:04 36.4 90 18 168/66 (100) 94 Room Air 05/08/18 20:49 74 165/67 (99) 92 Room Air 05/08/18 20:00 Room Air 05/08/18 16:10 79 20 177/79 (111) 95 Room Air 05/08/18 16:00 Room Air 05/08/18 16:00 36.6 84 20 149/70 (96) 96 Room Air 05/08/18 15:50 36.7 86 20 178/67 (104) 95 Room Air Lab Results: Results Past 24 Hours Test 05/09/18 05:58 Range/Units Sodium Level 138 136-145 mmol/L Potassium Level 4.2 3.5-5.1 mmol/L Chloride Level 106 98-107 mmol/L Carbon Dioxide Level 25 21-32 mmol/L Anion Gap 7.0 3-11 mmol/L Blood Urea Nitrogen 7 7-18 mg/dl Creatinine 0.73 0.60-1.20 mg/dl Est Creatinine Clear Calc Drug Dose 50.5 ml/min Estimated GFR () 88.3 Estimated GFR (Non- 76.2 BUN/Creatinine Ratio 9.7 10-20 Random Glucose 92 70-99 mg/dl Calcium Level 8.0 8.5-10.1 mg/dl Magnesium Level 1.7 1.8-2.4 mg/dl
[2018-05-09 16:00] VITALS: O2SAT 95
[2018-05-09 16:15] VITALS: BP 139/53; PULSE 83; TEMP 36.9; O2SAT 95
[2018-05-09] MEDS: ACETAMINOPHEN 325 MG TAB PO PRN (17:50)
[2018-05-09] MEDS: LORAZEPAM 0.5 MG TAB PO PRN (17:50)
[2018-05-09] MEDS: COLESTIPOL HCL 1 GM TAB PO SCH (21:56)
[2018-05-09] MEDS ORDERED: CHOLESTYRAMINE LIGHT 4 GM PKT PO SCH (22:00)
[2018-05-09 23:00] VITALS: BP 155/66; PULSE 64; TEMP 36.7; O2SAT 96
[2018-05-10] MEDS: VANCOMYCIN HCL 125 MG/2.5ML SOLN PO SCH ×5 (00:14→23:53)
[2018-05-10] MEDS: RASPBERRY SYRUP 5 ML UDP PO SCH ×5 (00:14→23:53)
[2018-05-10] MEDS: METRONIDAZOLE / NSS 500 MG in PREMIXED NSS 100 ML IV SCH ×3 (06:05→21:08)
[2018-05-10 07:28] VITALS: BP 159/72; PULSE 71; TEMP 36.8; O2SAT 95
[2018-05-10 07:48] LABS: HEMOGLOBIN 11.2 g/dL (12.0-16.0); MEAN CELL VOLUME 89.5 fL (80-100); MEAN CORPUSCULAR HEMOGLOBIN 29.5 pg (25-34); MEAN CORPUSCULAR HGB CONC 32.9 g/dl (32-36); MEAN PLATELET VOLUME 9.6 fL (7.4-10.4); PLATELET COUNT 335 K/uL (130-400); RED CELL DISTRIBUTION WIDTH CV 14.9 % (11.5-14.5); RED CELL DISTRIBUTION WIDTH SD 48.1 fL (36.4-46.3); WHITE BLOOD COUNT 7.82 K/uL (4.8-10.8)
[2018-05-10 08:15] LABS: CALCIUM 7.8 mg/dl (8.5-10.1); CREATININE 0.65 mg/dl (0.60-1.20); POTASSIUM 3.9 mmol/L (3.5-5.1)
[2018-05-10] MEDS: SODIUM CHLORIDE 0.9% 1000ML 1,000 ML IV SCH (08:22)
[2018-05-10] MEDS: METOPROLOL TARTRATE 25 MG TAB PO SCH ×2 (08:23→20:07)
[2018-05-10] MEDS: PANTOprazole SOD 40 MG TAB PO SCH (08:23)
[2018-05-10] MEDS: VENLAFAXINE HCL XR 150 MG CAPXR PO SCH (08:23)
[2018-05-10] MEDS: CEROVITE ADV FORMULA TAB PO SCH (08:23)
[2018-05-10] MEDS: ACETAMINOPHEN 325 MG TAB PO PRN ×2 (08:23→20:10)
[2018-05-10] MEDS: GABAPENTIN 300 MG CAP PO SCH (08:23)
[2018-05-10] MEDS: AMLODIPINE BESYLATE 5 MG TAB PO SCH (08:24)
[2018-05-10] MEDS: POTASSIUM CHLORIDE 20 MEQ TABCR PO SCH (08:24)
[2018-05-10] MEDS: POT PHOSPHATE MONOBASIC W/ SOD TAB PO SCH ×4 (08:24→20:08)
[2018-05-10] MEDS: THIAMINE HCL 100 MG TAB PO SCH (08:24)
[2018-05-10] MEDS: LISINOPRIL 40 MG TAB PO SCH (08:25)
[2018-05-10] MEDS: CALCIUM CARBONATE 1250MG TAB PO SCH (08:25)
[2018-05-10] MEDS: COLESTIPOL HCL 1 GM TAB PO SCH ×2 (10:14→21:07)
[2018-05-10] MEDS: MAGNESIUM SULFATE 1GM / D5W 100 ML IV SCH ×2 (12:13→13:24)
--- NOTE | 2018-05-10 13:54 | Progress Note ---
Internal Med Progress Note Date of Service: May 10, 2018. Provider Documentation: SUBJECTIVE: Seen and examined at bedside Diarrhea improving Denies abdominal pain, nausea, chest pain, SOB, dizziness Eager to get discharged No other complaints OBJECTIVE: Vital Signs-as noted below Physical Exam: General Appearance:Moderately built and nourished, no apparent distress Head: normocephalic, Atraumatic Eyes: normal inspection, EOMI, PERRL Neck: supple, Trachea midline Respiratory/Chest: Normal breath sounds, Basal Crackles Cardiovascular: S1, S2, No murmur Abdomen/GI:Soft, Non tender, Bowel sounds present Extremities/Musculoskelatal:normal inspection, no edema Neurologic/Psych:AAOX3, grossly no focal neurological deficits Skin: normal color, warm Lab data as noted below. ASSESSMENT & PLAN: Patient is an 82 yr female with PMH HTN, CKD III, CVA, PVD presented with diarrhea. Severe C.Diff Colitis Lymphocytic Colitis Likely related to recent Clindamycin use for Dental Infection S/P flexible sigmoidoscopy: Normal, no pseudomembranes Pathology: Consistent with Lymphocytic Colitis Continue Vancomycin, Flagyl Appreciate GI Input: Discussed with GI today Continue colestipol BID, Imodium PRN IV fluids Stool For C.diff Positive Monitor Electrolytes, renal function Advise to Quit smoking and avoid NSAIDs as able KEON on CKD STAGE III Likely Prerenal and Lisinopril Cr: 2.4>>.1.31.>>>0.65 resolved Lisinopril resumed Hypomagnesemia: Replace Mag supplements monitor Bright Red Blood per Rectum Likely due to C. difficile colitis Hb stable Resolved Resume ASA and Trental today monitor Hb HTN: Continue Amlodipine, Lisinopril, Metoprolol - monitor PRN Clonidine PVD Resume ASA, Trental H/O CVA continue home meds Alcohol Use Alcohol Withdrawal Protocol Tobacco use disorder [employer] Office to quit smoking DVT Px: SCDs Code Status: full code Disposition: Expect to return to [facility] when medically stable Vital Signs: Date Time Temp Pulse Resp B/P (MAP) Pulse Ox O2 Delivery O2 Flow Rate FiO2 05/10/18 08:30 Room Air 05/10/18 07:28 36.8 71 16 159/72 (101) 95 05/10/18 00:00 Room Air 05/09/18 23:00 36.7 64 18 155/66 (95) 96 Room Air 05/09/18 16:15 36.9 83 16 139/53 (81) 95 Room Air 05/09/18 16:00 95 Room Air Lab Results: Results Past 24 Hours Test 05/10/18 07:26 Range/Units White Blood Count 7.82 4.8-10.8 K/uL Red Blood Count 3.80 4.2-5.4 M/uL Hemoglobin 11.2 12.0-16.0 g/dL Hematocrit 34.0 37-47 % Mean Corpuscular Volume 89.5 80-100 fL Mean Corpuscular Hemoglobin 29.5 25-34 pg Mean Corpuscular Hemoglobin Concent 32.9 32-36 g/dl RDW Standard Deviation 48.1 36.4-46.3 fL RDW Coefficient of Variation 14.9 11.5-14.5 % Platelet Count 335 130-400 K/uL Mean Platelet Volume 9.6 7.4-10.4 fL Sodium Level 138 136-145 mmol/L Potassium Level 3.9 3.5-5.1 mmol/L Chloride Level 107 98-107 mmol/L Carbon Dioxide Level 25 21-32 mmol/L Anion Gap 6.0 3-11 mmol/L Blood Urea Nitrogen 6 7-18 mg/dl Creatinine 0.65 0.60-1.20 mg/dl Est Creatinine Clear Calc Drug Dose 56.7 ml/min Estimated GFR () 95.2 Estimated GFR (Non- 82.1 BUN/Creatinine Ratio 9.8 10-20 Random Glucose 102 70-99 mg/dl Calcium Level 7.8 8.5-10.1 mg/dl Magnesium Level 1.6 1.8-2.4 mg/dl
[2018-05-10 15:33] VITALS: BP 171/74; PULSE 84; TEMP 36.4; O2SAT 92
[2018-05-10] MEDS: LORAZEPAM 0.5 MG TAB PO PRN (20:12)
[2018-05-10 22:37] VITALS: BP 168/65; PULSE 65; TEMP 36.3; O2SAT 95
[2018-05-11] MEDS: LORAZEPAM 0.5 MG TAB PO PRN ×2 (04:10→21:28)
[2018-05-11] MEDS: METRONIDAZOLE / NSS 500 MG in PREMIXED NSS 100 ML IV SCH ×3 (06:14→21:22)
[2018-05-11] MEDS: VANCOMYCIN HCL 125 MG/2.5ML SOLN PO SCH ×4 (06:14→23:49)
[2018-05-11] MEDS: RASPBERRY SYRUP 5 ML UDP PO SCH ×4 (06:14→23:49)
[2018-05-11 06:30] LABS: HEMATOCRIT 38.2 % (37-47); HEMOGLOBIN 12.7 g/dL (12.0-16.0)
[2018-05-11 07:03] LABS: CALCIUM 8.8 mg/dl (8.5-10.1); CREATININE 0.72 mg/dl (0.60-1.20); POTASSIUM 4.1 mmol/L (3.5-5.1)
[2018-05-11 07:31] VITALS: BP 134/68; PULSE 93; TEMP 36.7; O2SAT 96
[2018-05-11] MEDS: THIAMINE HCL 100 MG TAB PO SCH (08:38)
[2018-05-11] MEDS: VENLAFAXINE HCL XR 150 MG CAPXR PO SCH (08:38)
[2018-05-11] MEDS: PANTOprazole SOD 40 MG TAB PO SCH (08:38)
[2018-05-11] MEDS: CEROVITE ADV FORMULA TAB PO SCH (08:38)
[2018-05-11] MEDS: GABAPENTIN 300 MG CAP PO SCH (08:39)
[2018-05-11] MEDS: AMLODIPINE BESYLATE 5 MG TAB PO SCH (08:39)
[2018-05-11] MEDS: METOPROLOL TARTRATE 25 MG TAB PO SCH ×2 (08:39→21:22)
[2018-05-11] MEDS: CALCIUM CARBONATE 1250MG TAB PO SCH (08:39)
[2018-05-11] MEDS: POTASSIUM CHLORIDE 20 MEQ TABCR PO SCH (08:40)
[2018-05-11] MEDS: LISINOPRIL 40 MG TAB PO SCH (08:40)
[2018-05-11] MEDS: POT PHOSPHATE MONOBASIC W/ SOD TAB PO SCH ×4 (08:40→21:22)
[2018-05-11] MEDS: COLESTIPOL HCL 1 GM TAB PO SCH ×2 (10:37→22:27)
[2018-05-11] MEDS: SODIUM CHLORIDE 0.9% 1000ML 1,000 ML IV SCH (10:39)
--- NOTE | 2018-05-11 12:34 | Psychiatric Consultation ---
Consultation Date of Consultation May 11, 2018. Identifying Data 82 yo resident of [facility], admitted medically with c-diff infection. We are consulted to evaluate depression. Information is gathered from the patient , and the EHR, both considered to be reliable. Chief Complaint "I am so low. ". History of Present Illness The patient is an 82 yo woman with medical conditions including PVD, CVA, CKD III, deafness, dyslipidemia, and hypertension who presented to the ED from [facility] due to BRBPR related to c-diff infection. She was admitted on 05/01 and recently has been making comments to staff about feeling depressed, and making statements about . At the time I see the patient she is asleep, but arouses to tactile. 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 She indicates that she has had depression since her 13 years ago and has been seeing Janki Brock about every 2 weeks for therapy during that time. She last saw her the week before admission. The patient admits that she is very unhappy about being in the hospital, wanting to return to [facility] where she feels she is being treated very well. She feels disrespected here when nursing staff carry on conversations with one another as if she isn't there , or don't take time to communicate with her. She denies that she is having suicidal thoughts, but says that would be "welcome". She denies chronic anxiety, but feels anxious here, again wanting to go home. She reports adequate sleep, but impaired appetite, saying that at Dr. Hayes's office they told her that she had lost 15 lbs. She denies ever having had aud/vis hallucinations. She is fully oriented. She talks about her family, 2 daughters in [place] who don't have anything to do with her, and a son who lives locally who visits every 2 weeks ( currently on vacation in [place]). She expresses a lot of hurt about not having a relationship with her daughters, but recognizes that she has no control over it. Past Psychiatric History Current OP Treatment: therapist (Dr. Janki Brock) Prior OP Treatment: no prior treatment Prior Psych Hospitalizations: none Access to a Gun: No Suicide Attempts: No Past Medical/Surgical History History of Concussion/Seizure: No (1) C. difficile colitis (2) TIA (transient ischemic attack) (3) PVD (peripheral vascular disease) (4) CKD stage 3 due to type 1 diabetes mellitus (5) Hypertension Allergies Allergies: Coded Allergies: Amoxicillin (Verified Allergy, Unknown, BETA-LACTAMS, 05/01/18) Clavulanic Acid (Verified Allergy, Unknown, BETA-LACTAMS, 05/01/18) Codeine (Verified Allergy, Unknown, 05/01/18) Hydrocodone (Verified Allergy, Unknown, 05/01/18) Morphine (Verified Allergy, Unknown, 05/01/18) Home Medications Scheduled Amlodipine (Norvasc), 5 MG PO DAILY Aspirin (Aspirin Ec), 81 MG PO DAILY Calcium Carbonate (Antacid) (Calcium Carbonate), 1,296 MG PO DAILY Carbamide Peroxide (Otic) (Debrox), 5 DROPS OT BID Ergocalciferol (Vitamin D 75915 Unit), 50,000 UNIT PO MONTHLY Gabapentin (Neurontin), 300 MG PO DAILY Lisinopril (Zestril), 40 MG PO DAILY Metoprolol Tartrate (Lopressor) (Lopressor), 25 MG PO BID Multiple Vitamins W/ Minerals (Therems M), 1 TAB PO QAM Pantoprazole (Protonix), 40 MG PO DAILY Pentoxifylline (Pentoxifylline ER), 400 MG PO TID Pravastatin Sodium (Pravastatin Sodium), 80 MG PO QPM Rosuvastatin Calcium (Crestor), 20 MG PO DAILY Venlafaxine Hcl (Effexor Extended Rel), 150 MG PO DAILY Scheduled PRN Acetaminophen Tab (Tylenol), 650 MG PO Q3-4HRS PRN for Pain or Fever Calcium Carbonate (Antacid) (Antacid), 500 MG PO TID PRN for HEARTBURN/ INDIGESTION Loperamide Hcl (Imodium), 4 MG PO UD PRN for Diarrhea Loperamide Hcl (Imodium), 2 MG PO UD PRN for Diarrhea Lorazepam (Ativan), 0.5 MG PO Q6H PRN for Anxiety Ondansetron Hcl (Zofran), 4 MG PO Q6 PRN for Nausea Prochlorperazine (Compro), 25 MG [place] Q12 PRN for Nausea Family History No pertinent family history Alcohol Use Alcohol Use In Past 12 Months: Yes enjoys a shot of alcohol every evening Smoking Use Smoking Status: Never Smoker Personal History Lives in: [facility] Education: graduated college (bachelors in home economics) 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." Relationship History: Children: 3 adopted Legal History: none Psychological Trauma History: Denies Hx Traumatic Event Review of Systems Constitutional: weakness Eyes: denies: no symptoms, as stated in HPI, eye pain, tearing, itching, redness, discharge, double vision, visual changes, blurred vision, photophobia, other ENT: reports: loss of hearing Cardiovascular: denies: no symptoms reported, see HPI, chest pain, chest tightness, chest pressure, diaphoresis, palpitations, syncope, other Respiratory: denies: no symptoms reported, see HPI, cough, orthopnea, short of breath, stridor, wheezing, sputum production, cyanosis, ARAMBULA, PND, other Gastrointestinal: diarrhea Genitourinary - Female: denies: no symptoms, see HPI, rash, amenorrhea, dysmenorrhea, menorrhagia, metrorrhagia, , vaginal bleeding, vaginal itching, vaginal discharge, vulvadynia, other Musculoskeletal: denies no symptoms reported, denies see HPI, denies back pain , denies gout, denies joint pain, denies joint swelling, denies muscle pain, denies muscle stiffness, denies neck pain, denies other Integumentary: denies no symptoms reported, denies see HPI, denies change in color, denies change in hair/nails, denies dryness, denies lesions, denies lumps , denies rash, denies other Neurologic: denies: no symptoms, see HPI, headache, numbness, paresthesias, pre -existing deficit, seizure, tingling, tremors, general weakness, tics, focal weakness, vertigo, lethargy, memory loss, dizziness, other Endocrine: denies: no symptoms, as stated in HPI, cold intolerance, heat intolerance, hair changes, goiter, polydipsia, polyuria, skin changes, other Hematologic / Lymphatic: denies: no symptoms, as stated in HPI, abnormal clotting, adenopathy, anemia, easy bleeding, easy bruising, gums bleeding, petechiae, other Examination Vital Signs Vital Signs Past 12 Hours Date Time Temp Pulse Resp B/P (MAP) Pulse Ox O2 Delivery O2 Flow Rate FiO2 05/11/18 08:00 Room Air 05/11/18 07:31 36.7 93 16 134/68 (90) 96 05/11/18 00:20 Room Air Laboratory Results Last 24 Hours Test 05/11/18 06:14 Hemoglobin 12.7 g/dL Hematocrit 38.2 % Sodium Level 138 mmol/L Potassium Level 4.1 mmol/L Chloride Level 106 mmol/L Carbon Dioxide Level 26 mmol/L Anion Gap 6.0 mmol/L Blood Urea Nitrogen 6 mg/dl Creatinine 0.72 mg/dl Est Creatinine Clear Calc Drug Dose 51.2 ml/min Estimated GFR () 89.8 Estimated GFR (Non- 77.4 BUN/Creatinine Ratio 8.2 Random Glucose 91 mg/dl Calcium Level 8.8 mg/dl Magnesium Level 1.8 mg/dl Mental Examination During interview pt is: alert and oriented, cooperative Appearance: appropriately groomed Eye contact is: good Motor behavior is: no abnormal motor movements Speech: normal in rate, rhythm & volume Affect: mood congruent, depressed, flat Mood is: depressed Thought process: goal directed Thought content: reality based without delusions Suicidal thought are: denied Homicidal thoughts are: denied Hallucinations: denies auditory, denies visual Cognition: memory grossly intact, attention grossly intact, language grossly intact Intelligence estimated to be: average Insight: fair Judgement: fair Impression / Recommendations Impression 82 yo resident of [facility], admitted with C-diff. We are consulted to evaluate depression. The patient readily admits to worsening depression, but without clear SI, more that she would not contracting officer the way of if it came her way. She has been on Effexor XR 150 mg. daily for an unspecified period of time, but with her hypertension, I am hesitant to increase this further (hx CVA) . In deference to her impaired appetite, I have suggested that we add Remeron 15 mg. HS which will benefit appetite as well as target mood. She agrees as long as I talk with Dr. Hayes first, which I have dutifully done. Will start tonight, and it may need titrated up to 30 mg if tolerated, for maximum benefit. Risk Factors Assessment : Yes /single/: Yes Higher / Fall in social status: No Access to guns: No Health problems: Yes Mental Health Diagnoses: Yes Substance use disorders: No Previous attempt: No Previous psychiatric stay: No Smoker: No Protective Factors Assessment Muslim beliefs: Yes : No Responsible for young children: No Employed: No Stable relationships: No Supportive family: Yes Good rapport with provider: Yes Recommendations (1) Depression 05/11 - Continue current dose of Effexor XR - Add Remeron 15 mg. HS, and consider further increase to 30 mg if no response. - If she is to remain in the hospital for any length of time, perhaps Dr. Brock would be willing to come see her while she is here. Dr. Bang Leone has personally been involved in the review of this case and development of these recommendations.
[2018-05-11 12:49] VITALS: Ht 162.6 cm; Wt 62.8 kg
[2018-05-11 14:36] VITALS: BP 140/61; TEMP 36.9; O2SAT 93
--- NOTE | 2018-05-11 17:55 | Progress Note ---
Internal Med Progress Note Date of Service: May 11, 2018. Provider Documentation: SUBJECTIVE: Seen and examined at bedside doing better today Diarrhea continues to improve Denies abdominal pain, nausea, chest pain, SOB, dizziness Eager to get discharged No other complaints OBJECTIVE: Vital Signs-as noted below Physical Exam: General Appearance:Moderately built and nourished, no apparent distress Head: normocephalic, Atraumatic Eyes: normal inspection, EOMI, PERRL Neck: supple, Trachea midline Respiratory/Chest: Normal breath sounds, Basal Crackles Cardiovascular: S1, S2, No murmur Abdomen/GI:Soft, Non tender, Bowel sounds present Extremities/Musculoskelatal:normal inspection, no edema Neurologic/Psych:AAOX3, grossly no focal neurological deficits Skin: normal color, warm Lab data as noted below. ASSESSMENT & PLAN: Patient is an 82 yr female with PMH HTN, CKD III, CVA, PVD presented with diarrhea. Severe C.Diff Colitis Lymphocytic Colitis Likely related to recent Clindamycin use for Dental Infection S/P flexible sigmoidoscopy: Normal, no pseudomembranes Pathology: Consistent with Lymphocytic Colitis Continue Vancomycin, Flagyl>> Plan to transition to PO Vancomycin upon DC Appreciate GI Input Continue colestipol BID, Imodium PRN DC IV fluids Stool For C.diff Positive Monitor Electrolytes, renal function Advise to Quit smoking and avoid NSAIDs as able KEON on CKD STAGE III Likely Prerenal and Lisinopril Cr: 2.4>>.1.31.>>>0.72 resolved Lisinopril resumed Hypomagnesemia: Replace Mag supplements as needed monitor Bright Red Blood per Rectum Likely due to C. 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 DVT Px: SCDs Code Status: full code Disposition: Expect to return to [facility] when medically stable Vital Signs: Date Time Temp Pulse Resp B/P (MAP) Pulse Ox O2 Delivery O2 Flow Rate FiO2 05/11/18 14:36 36.9 16 140/61 (87) 93 05/11/18 08:00 Room Air 05/11/18 07:31 36.7 93 16 134/68 (90) 96 05/11/18 00:20 Room Air 05/10/18 22:37 36.3 65 16 168/65 (99) 95 Room Air Lab Results: Results Past 24 Hours Test 05/11/18 06:14 Range/Units Hemoglobin 12.7 12.0-16.0 g/dL Hematocrit 38.2 37-47 % Sodium Level 138 136-145 mmol/L Potassium Level 4.1 3.5-5.1 mmol/L Chloride Level 106 98-107 mmol/L Carbon Dioxide Level 26 21-32 mmol/L Anion Gap 6.0 3-11 mmol/L Blood Urea Nitrogen 6 7-18 mg/dl Creatinine 0.72 0.60-1.20 mg/dl Est Creatinine Clear Calc Drug Dose 51.2 ml/min Estimated GFR () 89.8 Estimated GFR (Non- 77.4 BUN/Creatinine Ratio 8.2 10-20 Random Glucose 91 70-99 mg/dl Calcium Level 8.8 8.5-10.1 mg/dl Magnesium Level 1.8 1.8-2.4 mg/dl
[2018-05-11] MEDS ORDERED: ASPIRIN 81 MG ECTAB PO ONE (18:00)
[2018-05-11] MEDS ORDERED: MIRTAZAPINE TAB 15 MG TAB PO SCH (21:00)
[2018-05-11] MEDS: PENTOXIFYLLINE 400MG EXT REL TAB PO SCH (21:21)
[2018-05-11] MEDS: ACETAMINOPHEN 325 MG TAB PO PRN (21:28)
[2018-05-11 23:07] VITALS: BP 127/72; PULSE 65; TEMP 36.6; O2SAT 95
[2018-05-12] MEDS: RASPBERRY SYRUP 5 ML UDP PO SCH ×2 (05:19→12:36)
[2018-05-12] MEDS: VANCOMYCIN HCL 125 MG/2.5ML SOLN PO SCH ×2 (05:19→12:37)
[2018-05-12] MEDS: METRONIDAZOLE / NSS 500 MG in PREMIXED NSS 100 ML IV SCH (05:22)
[2018-05-12] MEDS: ACETAMINOPHEN 325 MG TAB PO PRN (05:31)
[2018-05-12 06:30] LABS: HEMATOCRIT 33.8 % (37-47); HEMOGLOBIN 11.1 g/dL (12.0-16.0)
[2018-05-12 07:07] LABS: CALCIUM 8.2 mg/dl (8.5-10.1); CREATININE 0.75 mg/dl (0.60-1.20)
[2018-05-12 07:22] VITALS: BP 172/80; PULSE 74; TEMP 36.7; O2SAT 92
[2018-05-12] MEDS ORDERED: ASPIRIN 81 MG ECTAB PO SCH (08:00)
[2018-05-12] MEDS: MAGNESIUM SULFATE 1GM / D5W 100 ML IV SCH ×2 (08:16→09:21)
[2018-05-12] MEDS: VENLAFAXINE HCL XR 150 MG CAPXR PO SCH (08:17)
[2018-05-12] MEDS: PANTOprazole SOD 40 MG TAB PO SCH (08:17)
[2018-05-12] MEDS: THIAMINE HCL 100 MG TAB PO SCH (08:17)
[2018-05-12] MEDS: METOPROLOL TARTRATE 25 MG TAB PO SCH (08:17)
[2018-05-12] MEDS: CEROVITE ADV FORMULA TAB PO SCH (08:17)
[2018-05-12] MEDS: POT PHOSPHATE MONOBASIC W/ SOD TAB PO SCH ×2 (08:18→12:37)
[2018-05-12] MEDS: CALCIUM CARBONATE 1250MG TAB PO SCH (08:18)
[2018-05-12] MEDS: PENTOXIFYLLINE 400MG EXT REL TAB PO SCH (08:18)
[2018-05-12] MEDS: POTASSIUM CHLORIDE 20 MEQ TABCR PO SCH (08:18)
[2018-05-12] MEDS: LISINOPRIL 40 MG TAB PO SCH (08:19)
[2018-05-12] MEDS: AMLODIPINE BESYLATE 5 MG TAB PO SCH (08:19)
[2018-05-12] MEDS: GABAPENTIN 300 MG CAP PO SCH (08:20)
[2018-05-12 08:30] VITALS: O2SAT 92
--- NOTE | 2018-05-12 10:34 | Progress Note ---
Internal Med Progress Note Date of Service: May 12, 2018. Provider Documentation: SUBJECTIVE: Seen and examined at bedside No new complaints Diarrhea continues to improve Denies any blood in stools Denies abdominal pain, nausea, chest pain, SOB, dizziness Eager to get discharged No other complaints OBJECTIVE: Vital Signs-as noted below Physical Exam: General Appearance:Moderately built and nourished, no apparent distress Head: normocephalic, Atraumatic Eyes: normal inspection, EOMI, PERRL Neck: supple, Trachea midline Respiratory/Chest: Normal breath sounds, Basal Crackles Cardiovascular: S1, S2, No murmur Abdomen/GI:Soft, Non tender, Bowel sounds present Extremities/Musculoskelatal:normal inspection, no edema Neurologic/Psych:AAOX3, grossly no focal neurological deficits Skin: normal color, warm Lab data as noted below. ASSESSMENT & PLAN: Patient is an 82 yr female with PMH HTN, CKD III, CVA, PVD presented with diarrhea. Severe C.Diff Colitis Lymphocytic Colitis Likely related to recent Clindamycin use for Dental Infection S/P flexible sigmoidoscopy: Normal, no pseudomembranes Pathology: Consistent with Lymphocytic Colitis Continue Vancomycin, Flagyl>> Plan to transition to PO Vancomycin upon DC Appreciate GI Input Continue colestipol BID, Imodium PRN Plan to continue Colestipol for 2 weeks and stop DC IV fluids Stool For C.diff Positive Monitor Electrolytes, renal function Advise to Quit smoking and avoid NSAIDs as able KEON on CKD STAGE III Likely Prerenal and Lisinopril Cr: 2.4>>.1.31.>>>0.72 resolved Lisinopril resumed Hypomagnesemia: Replace Mag supplements as needed monitor Bright Red Blood per Rectum Likely due to C. 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 DVT Px: SCDs Code Status: full code Disposition: Plan to discharge to [facility] today Follow up with your PCP in 1 week Follow up with your Engine Repairer Service in 3-4 weeks Follow up with your Psychiatrist as needed Complete the Vancomycin course for 7 more days Complete Colestipol for 2 weeks and stop Seek immediate medical attention if your symptoms reoccur or worsen Vital Signs: Date Time Temp Pulse Resp B/P (MAP) Pulse Ox O2 Delivery O2 Flow Rate FiO2 05/12/18 07:22 36.7 74 18 172/80 (110) 92 05/12/18 03:05 Room Air 05/11/18 23:07 36.6 65 20 127/72 (90) 95 Room Air 05/11/18 16:00 Room Air 05/11/18 14:36 36.9 16 140/61 (87) 93 Lab Results: Results Past 24 Hours Test 05/12/18 06:15 Range/Units Hemoglobin 11.1 12.0-16.0 g/dL Hematocrit 33.8 37-47 % Sodium Level 140 136-145 mmol/L Potassium Level 4.0 3.5-5.1 mmol/L Chloride Level 106 98-107 mmol/L Carbon Dioxide Level 25 21-32 mmol/L Anion Gap 9.0 3-11 mmol/L Blood Urea Nitrogen 7 7-18 mg/dl Creatinine 0.75 0.60-1.20 mg/dl Est Creatinine Clear Calc Drug Dose 49.1 ml/min Estimated GFR () 85.4 Estimated GFR (Non- 73.7 BUN/Creatinine Ratio 8.7 10-20 Random Glucose 94 70-99 mg/dl Calcium Level 8.2 8.5-10.1 mg/dl Magnesium Level 1.5 1.8-2.4 mg/dl
[2018-05-12] MEDS ORDERED: RMR15 PO (10:41)
[2018-05-12] MEDS ORDERED: SLWMEC PO (10:41)
[2018-05-12] MEDS ORDERED: VANC5CAP PO (10:41)
[2018-05-12] MEDS ORDERED: CLS1 PO (10:41)
[2018-05-12] MEDS ORDERED: LORA-741 PO (10:41)
[2018-05-12] MEDS ORDERED: POTTAB2 PO (10:41)
[2018-05-12] MEDS: COLESTIPOL HCL 1 GM TAB PO SCH (10:42)
--- NOTE | 2018-05-12 10:44 | Discharge Summary ---
Discharge Summary Date of Service May 12, 2018. Discharge Summary Admission Date: May 01, 2018 at 14:09 Discharge Date: May 12, 2018 [facility] Principal Diagnosis: C.diff Colitis, RAY, Lymphocytic colitis Procedures: CT ABD: 1. Stable to slight interval worsening of colitis most prominently involving the descending colon through the rectum with lesser involvement of the transverse and right colon. No bowel obstruction. No perforation. 2. Indeterminate lobe millimeters left adrenal nodule. 3. Increased bibasilar passive atelectasis with small to moderate bilateral pleural effusions. 4. Findings suggest volume overload. Sigmoidoscopy: Impression: - Preparation of the colon was fair. - The rectum to sigmoid colon is normal. Biopsied. No pseudomembranes seen. Recommendation: - Resume regular diet. - Continue Flagyl and PO Vanc. - PRN antidiarrheal. - Recall GI if needed. Consultations: GI, Psychiatry Pending Studies/Follow-Up: Follow up with your PCP in 1 week Follow up with your Infectious Diseases Physician in 3-4 weeks Follow up with your Psychiatrist as needed Complete the Vancomycin course for 7 more days Complete Colestipol for 2 weeks and stop Quit smoking Tobacco as advised Seek immediate medical attention if your symptoms reoccur or worsen Medication Reconciliation New Medications: Magnesium Chloride (Slow-Mag Tab) 64 Mg Tabcr 64 MG PO BID for 7 Days, #14 TAB Vancomycin Hcl (Vancomycin) 125 Mg Cap 125 MG PO QID for 7 Days, #28 CAP Colestipol HCl (Colestid) 1 Gm Tab 2 GM PO BID@1000,2200 for 14 Days, #48 TAB Mirtazapine (Mirtazapine) 15 Mg Tab 15 MG PO HS for 30 Days, #30 TAB 1 Refill Pot Phosphate Monobasic W/ Sod (Phospha 250 Neutral) 1 Tab Tab 1 TAB PO QID for 7 Days, #28 TAB Continued Medications: Acetaminophen Tab (Tylenol) 325 Mg Tab 650 MG PO Q3-4HRS PRN for Pain or Fever MAX 3 GM APAP IN 24 HOURS Amlodipine (Norvasc) 5 Mg Tab 5 MG PO DAILY Aspirin (Aspirin Ec) 81 Mg Tab 81 MG PO DAILY WITH BREAKFAST Calcium Carbonate (Antacid) (Calcium Carbonate) 648 Mg Tab 1296 MG PO DAILY TWO 648 MG TABLETS Calcium Carbonate (Antacid) (Antacid) 500 Mg Chw 500 MG PO TID PRN for HEARTBURN/INDIGESTION Carbamide Peroxide (Otic) (Debrox) 6.5 % [place] 5 DROPS OT BID FILL EAR CANAL AND INSERT COTTON PLUG. REMOVE PLUF AFTER 15-30 MINUTES FOR EAR WAX. Ergocalciferol (Vitamin D 32779 Unit) 50,000 Unit Cap 91985 UNIT PO MONTHLY ON THE 7TH OF EVERY MONTH Gabapentin (Neurontin) 300 Mg Cap 300 MG PO DAILY Lisinopril (Zestril) 40 Mg Tab 40 MG PO DAILY Loperamide Hcl (Imodium) 2 Mg Cap 4 MG PO UD PRN for Diarrhea Loperamide Hcl (Imodium) 2 Mg Cap 2 MG PO UD PRN for Diarrhea 1 CAPSULE AFTER EACH LOOSE BOWEL MOVEMENT. NO MORE THAN 8 CAPSULES PER DAY. Lorazepam (Ativan) 0.5 Mg Tab 0.5 MG PO Q6H PRN for Anxiety, #10 (This prescription has been renewed) Metoprolol Tartrate (Lopressor) (Lopressor) 25 Mg Tab 25 MG PO BID Multiple Vitamins W/ Minerals (Therems M) 1 Tab Tab 1 TAB PO QAM WITH BREAKFAST Ondansetron Hcl (Zofran) 4 Mg Tab 4 MG PO Q6 PRN for Nausea Pantoprazole (Protonix) 40 Mg Tab 40 MG PO DAILY Pentoxifylline (Pentoxifylline ER) 400 Mg Tabcr 400 MG PO TID Pravastatin Sodium (Pravastatin Sodium) 80 Mg Tab 80 MG PO QPM DAILY AT 1700 Prochlorperazine (Compro) 25 Mg Sup 25 MG AL Q12 PRN for Nausea Rosuvastatin Calcium (Crestor) 20 Mg Tab 20 MG PO DAILY Venlafaxine Hcl (Effexor Extended Rel) 150 Mg Cap 150 MG PO DAILY Admission Information HPI (per Admitting provider): 82-year-old female who presents to the ED with diarrhea and bright red bleeding per rectum. Patient currently resides at [facility]. Patient is very hard of hearing and history is somewhat limited from her. I also spoke to the staff at [facility]. She reports she has been having diarrhea for the past 1 week. The staff at [facility] report they noted bright red blood with mucousy diarrhea this morning. Patient reports generalized abdominal pain and cramping. The staff at [facility] report that the patient had some vomiting a few days ago. They deny coffee-ground emesis hematemesis. No fevers or chills. She denies lightheadedness, dizziness, diaphoresis, syncopal events. No chest pain or shortness of breath. She denies any urinary symptoms. In the ED, patient has a positive for C. difficile. She is on have an RAY with creatinine of 2.4. WBC 16 K. She is hemodynamically stable. She was given 2 L IVF and 1 dose of oral Dificid. Of note, patient received clindamycin 04/01 through 04/09 for a dental infection. Physical Exam (per Admitting): General Appearance: WD/WN, no apparent distress Head: normocephalic, atraumatic Eyes: normal inspection, EOMI, sclerae normal ENT: + pertinent finding (Very [place], mucous membranes dry) Neck: supple, no JVD, trachea midline Respiratory/Chest: lungs clear, normal breath sounds, no respiratory distress Cardiovascular: regular rate, rhythm, no edema, normal peripheral pulses Abdomen/GI: normal bowel sounds, soft, no organomegaly, + tenderness ( Generalized) Extremities/Musculoskelatal: normal inspection, no calf tenderness, normal capillary refill Neurologic/Psych: no motor/sensory deficits, alert, normal mood/affect, oriented x 3 Skin: normal color, warm/dry Hospital Course Patient is an 82 yr female with PMH HTN, CKD III, CVA, PVD presented with diarrhea. Severe C.Diff Colitis Lymphocytic Colitis Likely related to recent Clindamycin use for Dental Infection S/P flexible sigmoidoscopy: Normal, no pseudomembranes Pathology: Consistent with Lymphocytic Colitis Continue Vancomycin, Flagyl>> Plan to transition to PO Vancomycin upon DC Appreciate GI Input Continue colestipol BID, Imodium PRN Plan to continue Colestipol for 2 weeks and stop DC IV fluids Stool For C.diff Positive Monitor Electrolytes, renal function Advise to Quit smoking and avoid NSAIDs as able RAY on CKD STAGE III Likely Prerenal and Lisinopril Cr: 2.4>>.1.31.>>>0.72 resolved Lisinopril resumed Hypomagnesemia: Replace Mag supplements as needed monitor Bright Red Blood per Rectum Likely due to C. 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 Discharge Instructions Discharge Instructions Date of Service May 12, 2018. Admission Reason for Admission: Ray (Acute Kidney Injury), C. Difficile Colitis Discharge Discharge Diagnosis / Problem: C.diff Colitis, RAY, Lymphocytic colitis Discharge Goals Goal(s): Decrease discomfort, Improve function Activity Recommendations Activity Limitations: resume your previous activity Exercise/Sports Limitations: as tolerated . Instructions / Follow-Up Instructions / Follow-Up Follow up with your PCP in 1 week Follow up with your Infectious Diseases Physician in 3-4 weeks Follow up with your Psychiatrist as needed Complete the Vancomycin course for 7 more days Complete Colestipol for 2 weeks and stop Quit smoking Tobacco as advised Seek immediate medical attention if your symptoms reoccur or worsen Current Hospital Diet Patient's current hospital diet: AHA Diet (Heart Healthy) Discharge Diet Recommended Diet: AHA Diet (Heart Healthy) Procedures Procedures Performed: SIGMOIDOSCOPY Pending Studies Studies pending at discharge: no Medical Emergencies . Who to Call and When: Medical Emergencies: If at any time you feel your situation is an emergency, please call 911 immediately. . Non-Emergent Contact Non-Emergency issues call your: Primary Care Provider, Infectious Diseases Physician Call Non-Emergent contact if: you have a fever, your pain is not controlled, your pain is worsening, your pain is unusual for you, your pain is concerning you, you have any medication questions Seek immediate medical attention if your symptoms reoccur or worsen . . "Provider Documentation" section prepared by Luis Manuel Johnson. . <Electronically signed by Luis Manuel Johnson MD> Signed: 05/12/18 1043 Signed: The status of this report is Signed * If report status is Draft, the document has not been finalized by the responsible provider.
[2018-05-12 11:26] VITALS: BP 172/80; PULSE 74; TEMP 36.7; O2SAT 92
[2018-05-12 12:00] VITALS: BP 142/78; PULSE 70; O2SAT 94
== END 2018-05-12 14:15 | disposition home or self-care (01) | DRG 372 ==
LOC: EDBD 09:30 → C.EDC 09:30 → C.4E 14:09 → ENRESERV 14:45
PROVIDERS: ADMIT Internal Medicine; ATTEND Internal Medicine
PROC: 0DBN8ZX Excision of Sigmoid Colon, Via Natural or Artificial Opening Endoscopic, Diagnostic (ICD-10-PCS; principal; 2018-05-08 15:44)
DX: A04.72 Enterocolitis due to Clostridium difficile, not specified as recurrent (principal); K92.1 Melena; N17.9 Acute kidney failure, unspecified; T36.8X5A Adverse effect of other systemic antibiotics, initial encounter; K52.832 Lymphocytic colitis; E86.0 Dehydration; E83.42 Hypomagnesemia; R15.9 Full incontinence of feces; I12.9 Hypertensive chronic kidney disease with stage 1 through stage 4 chronic kidney disease, or unspecified chronic kidney disease; N18.3 Chronic kidney disease, stage 3 (moderate); I73.9 Peripheral vascular disease, unspecified; H91.90 Unspecified hearing loss, unspecified ear; F32.9 Major depressive disorder, single episode, unspecified; F41.9 Anxiety disorder, unspecified; F17.200 Nicotine dependence, unspecified, uncomplicated; Z72.89 Other problems related to lifestyle; Z86.73 Personal history of transient ischemic attack (TIA), and cerebral infarction without residual deficits; Z79.82 Long term (current) use of aspirin; Z79.899 Other long term (current) drug therapy; Z88.0 Allergy status to penicillin; Z88.1 Allergy status to other antibiotic agents; Z88.5 Allergy status to narcotic agent